=== PATIENT | female | born 1960 | race Caucasian/White ===

== ENCOUNTER 2018-12-24 08:40 | Inpatient (IN) ==
[2018-12-24 09:46] LABS: Basophils # 0.1 10*3/uL (0.0-0.2); Basophils % 0.5 % (0.0-0.8); Hematocrit 26.9 VOL% (35.7-47.0); Hemoglobin 9.1 GM/DL (12.0-16.0); Immature Granulocytes % 3.3 %; Immature Granulocytes Absolute 0.87 #; Lymphocytes # 1.9 10*3/uL (1.4-4.0); Lymphocytes % 7.1 % (21.3-54.2); Mean Corpuscular HGB Conc 33.8 GM/DL (32-36); Mean Corpuscular Volume 82.8 FL (87-102); Monocytes % 9.3 % (1.7-12.7); NRBC # 0.09 10*3/uL; Neutrophils % 79.8 % (38.7-73.9); Red Blood Count 3.25 MC/CUMM (3.8-5.5); Red Cell Distribution Width 17.5 % (9.3-17.3); White Blood Count 26.6 T/CUMM (4-12)
[2018-12-24 09:53] LABS: Platelet Count 1189 T/CUMM (130-400)
[2018-12-24 09:57] LABS: INR 0.9; PT Patient Result 10.3 SECS; Partial Thromboplastin Time 27.4 SECS (0-40)
[2018-12-24] MEDS ORDERED: SODIUM CHLORIDE 0.9% 1,000 ML IV STA ×2 (10:04→10:51)
[2018-12-24] MEDS ORDERED: PIPERACILLIN/TAZOBACTAM 3,375 MG in SODIUM CHLORIDE 0.9% 100 ML IV STA (10:04)
[2018-12-24 10:08] LABS: Albumin 1.8 G/DL (3.4-5.0); Bilirubin,Total 1.1 MG/DL (0.2-1.0); Calcium 8.4 MG/DL (8.5-10.1); Osmolality,Calculated 272.4 MOS/KG (273-304)
[2018-12-24 10:14] LABS: Band Neutrophils 4 % (0-10); Hypochromasia 1+; Lymphocytes 8 % (20-55); Platelet Estimate Increased; Segmented Neutrophils 84 % (50-85); Total Cells Counted 100
[2018-12-24 10:21] LABS: Apearance,Urine Slightly Hazy (Clear); Bacteria,Urine Many /HPF (Few); Bilirubin,Urine Negative (Negative); Blood, Urine Negative (Negative); Glucose,Urine (UA) Negative (Negative); Ketones,Urine 5 mg/dL (Negative); Mucus,Urine Many /LPF (Occasional); Nitrite,Urine Negative (Negative); Protein,Urine Negative; RBC,Urine 24 /HPF (0-4); Urine Color Yellow (Yellow); Urine Specific Gravity 1.047 (1.001-1.035); WBC,Urine 38 /HPF (0-6)
[2018-12-24 10:24] LABS: Barbiturates Screen,Urine Negative (Negative); Benzodiazepines Screen,Urine Negative (Negative); Cannabinoid Screen,Urine Negative (Negative); Opiate Screen,Urine Negative (Negative); Phencyclidine Screen,Urine Negative (Negative)
[2018-12-24] MEDS ORDERED: cefOXitin 2,000 MG in SYRINGE 1 EACH IV ONE (10:33)
[2018-12-24] MEDS ORDERED: ACETAMINOPHEN 325 MG TABLET PO PRN (10:35)
[2018-12-24] MEDS ORDERED: ALBUTEROL/IPRATROPIUM 3 ML NEB RESP TX PRN (10:35)
[2018-12-24] MEDS ORDERED: DEXTROSE 50% 25 GM/50 ML VIAL IV STA (10:50)
[2018-12-24] MEDS ORDERED: DEXTROSE 50% 25 GM/50 ML SYRINGE IV ONE (10:52)
[2018-12-24] MEDS ORDERED: LACTATED RINGERS 1,000 ML IV SCH (11:00)
[2018-12-24] MEDS ORDERED: DEXTROSE 10% 0 ML IV ONE (11:16)
[2018-12-24] MEDS ORDERED: DEXTROSE 50% 25 GM/50 ML VIAL IV ONE (11:18)
[2018-12-24] MEDS ORDERED: PHENYLEPHRINE DRIP 40 MG/250 ML PREMIX IV ONE (13:05)
[2018-12-24] MEDS ORDERED: NOREPINEPHRINE 8 MG in SODIUM CHLORIDE 0.9% 242 ML IV PRN (13:11)
[2018-12-24] MEDS ORDERED: propofoL 200 MG/20 ML VIAL IV ONE (13:20)
[2018-12-24] MEDS: PHENYLEPHRINE DRIP 40 MG/250 ML PREMIX IV PRN ×3 (13:20→21:38)
[2018-12-24] MEDS ORDERED: SEVOFLURANE 1 UNIT/15 MINUTE INH ONE (13:21)
[2018-12-24] MEDS ORDERED: DESFLURANE 1 UNIT/15 MINUTE INH ONE (13:21)
[2018-12-24] MEDS ORDERED: ROCURONIUM 100 MG/10 ML VIAL IV ONE (13:22)
[2018-12-24] MEDS ORDERED: SODIUM CHLORIDE 0.9% 2,000 ML IV ONE (13:22)
[2018-12-24] MEDS ORDERED: PHENYLEPHRINE 10 MG/1 ML VIAL IV ONE (13:22)
[2018-12-24] MEDS ORDERED: PHENYLEPHRINE 1 MG/10 ML SYRINGE IV ONE (13:22)
[2018-12-24] MEDS ORDERED: MIDAZOLAM 10 MG/2 ML VIAL ONE (13:22)
[2018-12-24] MEDS ORDERED: SUFentanil 50 MCG/ML AMP ONE (13:22)
[2018-12-24] MEDS ORDERED: SODIUM CHLORIDE 0.9% 1,000 ML IV ONE (13:22)
[2018-12-24] MEDS ORDERED: SUCCINYLCHOLINE 200 MG/10 ML VIAL ONE (13:22)
[2018-12-24] MEDS ORDERED: SODIUM CHLORIDE 0.9% 250 ML IV ONE (13:23)
[2018-12-24] MEDS ORDERED: SODIUM CHLORIDE 0.9% 100 ML IV ONE (13:23)
[2018-12-24 13:30] LABS: Apearance,Urine CLOUDY (Clear); Bacteria,Urine Few /HPF (Few); Bilirubin,Urine Negative (Negative); Blood, Urine Moderate mg/dL (Negative); Glucose,Urine (UA) 50 mg/dL (Negative); Ketones,Urine 5 mg/dL (Negative); Mucus,Urine Many /LPF (Occasional); Nitrite,Urine Negative (Negative); Protein,Urine Negative; RBC,Urine 21 /HPF (0-4); Urine Color Amber (Yellow); Urine Specific Gravity 1.044 (1.001-1.035); Urine Urobilinogen < 2.0 EU/DL (0.2-1.0); WBC,Urine 653 /HPF (0-6)
[2018-12-24 13:37] LABS: Allen Test Positive; Pt O2 Delivery Device Ventilator
[2018-12-24 13:39] LABS: ABG Base Excess -5.8 MMOL/L (-2.5-2.5); ABG HCO3 19.6 MMOL/L (20-26); ABG Oxygen Saturation 98.5 % (95-100); ABG PCO2 47.4 MM HG (35-48); ABG PH 7.255 (7.35-7.45); ABG TCO2 20.2 MMOL/L (23-27)
[2018-12-24] MEDS: HYDROmorphone 2 MG/1 ML VIAL IV PRN ×4 (16:10→22:41)
[2018-12-24] MEDS ORDERED: LACTATED RINGERS 1,000 ML IV ONE (18:41)
[2018-12-24] MEDS: ONDANSETRON 4 MG/2 ML VIAL IV PRN (18:55)
[2018-12-24] MEDS: LACTATED RINGERS 1,000 ML IV SCH (19:04)
[2018-12-24] MEDS: PIPERACILLIN/TAZOBACTAM 3,375 MG in SODIUM CHLORIDE 0.9% 100 ML IV SCH (21:14)
[2018-12-25] MEDS: PHENYLEPHRINE DRIP 40 MG/250 ML PREMIX IV PRN ×8 (00:31→21:12)
[2018-12-25] MEDS: LACTATED RINGERS 1,000 ML IV SCH ×4 (01:35→15:37)
[2018-12-25 03:48] LABS: ABG Base Excess -4.2 MMOL/L (-2.5-2.5); ABG HCO3 20.9 MMOL/L (20-26); ABG Oxygen Saturation 99.1 % (95-100); ABG PCO2 35.9 MM HG (35-48); ABG PH 7.367 (7.35-7.45); ABG TCO2 19.6 MMOL/L (23-27); Allen Test Positive; Pt O2 Delivery Device Ventilator
[2018-12-25] MEDS: HYDROmorphone 2 MG/1 ML VIAL IV PRN ×4 (04:15→20:30)
[2018-12-25 04:54] LABS: Basophils # 0.1 10*3/uL (0.0-0.2); Basophils % 0.3 % (0.0-0.8); Eosinophils % 0.1 % (0.00-10.9); Hematocrit 20.9 VOL% (35.7-47.0); Hemoglobin 6.7 GM/DL (12.0-16.0); Lymphocytes # 2.5 10*3/uL (1.4-4.0); Lymphocytes % 8.9 % (21.3-54.2); Mean Corpuscular HGB Conc 32.1 GM/DL (32-36); Mean Corpuscular Volume 87.8 FL (87-102); Mean Platelet Volume 9.2 FL (9.6-12.0); Monocytes % 11.3 % (1.7-12.7); NRBC # 0.33 10*3/uL; Neutrophils % 72.4 % (38.7-73.9); Red Blood Count 2.38 MC/CUMM (3.8-5.5); Red Cell Distribution Width 18.6 % (9.3-17.3); White Blood Count 28.5 T/CUMM (4-12)
[2018-12-25 05:02] LABS: Platelet Count 1015 T/CUMM (130-400)
[2018-12-25 05:13] LABS: PT Patient Result 11.2 SECS
[2018-12-25] MEDS ORDERED: SODIUM CHLORIDE 0.9% 1,000 ML IV PRN (05:15)
[2018-12-25 05:18] LABS: Albumin 1.4 G/DL (3.4-5.0); Bilirubin,Total 0.8 MG/DL (0.2-1.0); Calcium 7.3 MG/DL (8.5-10.1); Osmolality,Calculated 287.3 MOS/KG (273-304); Total Protein 4.4 G/DL (6.4-8.3)
[2018-12-25] MEDS ORDERED: DEXTROSE 10% 250 ML IV ONE (05:49)
[2018-12-25 05:52] LABS: Band Neutrophils 9 % (0-10); Lymphocytes 5 % (20-55); Metamyelocytes 1 %; Nucleated Red Blood Cells 2 (0-5); Promyelocytes 2 %; Segmented Neutrophils 75 % (50-85); Total Cells Counted 100
[2018-12-25 05:53] LABS: Hypochromasia 1+; Target Cells Few
[2018-12-25 05:54] LABS: Anisocytosis 1+; Microcytosis 1+
[2018-12-25] MEDS ORDERED: DEXTROSE 10% 250 ML BAG IV PRN (06:19)
[2018-12-25] MEDS: PANTOPRAZOLE 40 MG VIAL IV SCH (09:04)
[2018-12-25] MEDS: metroNIDAZOLE INJ 500 MG in PREMIX 1 EACH IV SCH ×3 (09:04→21:11)
[2018-12-25] MEDS: PIPERACILLIN/TAZOBACTAM 3,375 MG in SODIUM CHLORIDE 0.9% 100 ML IV SCH ×2 (12:33→21:12)
[2018-12-25] MEDS: ONDANSETRON 4 MG/2 ML VIAL IV PRN (15:17)
[2018-12-25] MEDS: DEXT 5% NACL 0.45% KCL 20 MEQ 20 MEQ/1,000 ML BAG IV SCH ×2 (15:43→22:30)
[2018-12-25 20:36] LABS: Hematocrit 36.2 VOL% (35.7-47.0)
[2018-12-25 20:51] LABS: Hemoglobin 11.8 GM/DL (12.0-16.0)
[2018-12-26] MEDS: PHENYLEPHRINE DRIP 40 MG/250 ML PREMIX IV PRN ×7 (00:18→22:30)
[2018-12-26] MEDS: metroNIDAZOLE INJ 500 MG in PREMIX 1 EACH IV SCH ×4 (02:30→20:30)
[2018-12-26 02:45] LABS: ABG Base Excess -5.4 MMOL/L (-2.5-2.5); ABG PCO2 39.6 MM HG (35-48); ABG PH 7.319 (7.35-7.45); ABG TCO2 18.5 MMOL/L (23-27); Allen Test Positive; Pt O2 Delivery Device Ventilator
[2018-12-26] MEDS: DEXT 5% NACL 0.45% KCL 20 MEQ 20 MEQ/1,000 ML BAG IV SCH ×4 (05:15→20:42)
[2018-12-26] MEDS: HYDROmorphone 2 MG/1 ML VIAL IV PRN ×4 (05:23→23:36)
[2018-12-26 05:47] LABS: Basophils # 0.2 10*3/uL (0.0-0.2); Basophils % 0.8 % (0.0-0.8); Eosinophils # 0.1 10*3/uL (0.0-0.87); Eosinophils % 0.5 % (0.00-10.9); Hematocrit 30.4 VOL% (35.7-47.0); Hemoglobin 10.1 GM/DL (12.0-16.0); Immature Granulocytes % 18.3 %; Immature Granulocytes Absolute 4.14 #; Lymphocytes # 2.4 10*3/uL (1.4-4.0); Lymphocytes % 10.6 % (21.3-54.2); Mean Corpuscular HGB Conc 33.2 GM/DL (32-36); Mean Corpuscular Volume 88.4 FL (87-102); Mean Platelet Volume 9.4 FL (9.6-12.0); Monocytes % 10.7 % (1.7-12.7); NRBC # 0.04 10*3/uL; Neutrophils % 59.1 % (38.7-73.9); Platelet Count 688 T/CUMM (130-400); Red Blood Count 3.44 MC/CUMM (3.8-5.5); Red Cell Distribution Width 17.4 % (9.3-17.3); White Blood Count 22.6 T/CUMM (4-12)
[2018-12-26 06:02] LABS: PT Patient Result 11.1 SECS
[2018-12-26 06:20] LABS: Albumin 1.4 G/DL (3.4-5.0); Bilirubin,Total 0.7 MG/DL (0.2-1.0); Calcium 7.9 MG/DL (8.5-10.1); Total Protein 4.8 G/DL (6.4-8.3)
[2018-12-26 06:28] LABS: Anisocytosis 1+; Band Neutrophils 5 % (0-10); Eosinophils 1 % (0-10); Hypochromasia Slight; Lymphocytes 4 % (20-55); Metamyelocytes 7 %; Microcytosis 1+; Myelocytes 1 %; Segmented Neutrophils 73 % (50-85); Total Cells Counted 100
[2018-12-26 06:29] LABS: Polychromasia Slight; Target Cells 1+
[2018-12-26 06:30] LABS: Platelet Estimate Increased
[2018-12-26] MEDS: PANTOPRAZOLE 40 MG VIAL IV SCH (08:22)
[2018-12-26] MEDS: PIPERACILLIN/TAZOBACTAM 3,375 MG in SODIUM CHLORIDE 0.9% 100 ML IV SCH ×2 (10:13→22:30)
[2018-12-26] MEDS ORDERED: fentaNYL 100 MCG/2 ML VIAL ONE (14:09)
[2018-12-26] MEDS ORDERED: SEVOFLURANE 1 UNIT/15 MINUTE INH ONE (14:09)
[2018-12-26] MEDS ORDERED: ALBUMIN 5% 12.5 GM/250 ML VIAL IV ONE (14:09)
[2018-12-26] MEDS ORDERED: LACTATED RINGERS 1,000 ML IV ONE (14:10)
[2018-12-26] MEDS ORDERED: MIDAZOLAM 2 MG/2 ML VIAL ONE (14:10)
[2018-12-26] MEDS ORDERED: ROCURONIUM 100 MG/10 ML VIAL IV ONE (14:10)
[2018-12-26] MEDS ORDERED: ePHEDrine 50 MG/ML AMP ONE (14:10)
[2018-12-26] MEDS ORDERED: GLUCAGON 1 MG VIAL IM PRN (14:35)
[2018-12-26] MEDS ORDERED: DEXTROSE 50% 25 GM/50 ML VIAL IV PRN (14:35)
[2018-12-26] MEDS ORDERED: INSULIN REGULAR 100 UNIT/ML SUBCUT SCH (18:00)
[2018-12-27] MEDS: PHENYLEPHRINE DRIP 40 MG/250 ML PREMIX IV PRN ×3 (02:02→09:11)
[2018-12-27] MEDS: metroNIDAZOLE INJ 500 MG in PREMIX 1 EACH IV SCH ×4 (02:40→20:58)
[2018-12-27] MEDS: DEXT 5% NACL 0.45% KCL 20 MEQ 20 MEQ/1,000 ML BAG IV SCH (03:23)
[2018-12-27 04:04] LABS: ABG Base Excess -7.1 MMOL/L (-2.5-2.5); ABG HCO3 18.7 MMOL/L (20-26); ABG Oxygen Saturation 98.9 % (95-100); ABG PCO2 32.2 MM HG (35-48); ABG PH 7.347 (7.35-7.45); ABG TCO2 15.7 MMOL/L (23-27); Pt O2 Delivery Device Ventilator
[2018-12-27 05:59] LABS: Basophils % 0.1 % (0.0-0.8); Eosinophils # 0.1 10*3/uL (0.0-0.87); Eosinophils % 0.2 % (0.00-10.9); Hematocrit 36.6 VOL% (35.7-47.0); Hemoglobin 11.5 GM/DL (12.0-16.0); Immature Granulocytes % 13.4 %; Immature Granulocytes Absolute 5.12 #; Lymphocytes # 2.9 10*3/uL (1.4-4.0); Lymphocytes % 7.5 % (21.3-54.2); Mean Corpuscular HGB Conc 31.4 GM/DL (32-36); Mean Corpuscular Volume 91.3 FL (87-102); Monocytes % 7.5 % (1.7-12.7); NRBC # 0.06 10*3/uL; Neutrophils % 71.3 % (38.7-73.9); Platelet Count 633 T/CUMM (130-400); Red Blood Count 4.01 MC/CUMM (3.8-5.5); Red Cell Distribution Width 18.6 % (9.3-17.3); White Blood Count 38.2 T/CUMM (4-12)
[2018-12-27 06:30] LABS: Albumin 1.1 G/DL (3.4-5.0); Bilirubin,Total 0.9 MG/DL (0.2-1.0); Calcium 7.3 MG/DL (8.5-10.1); Osmolality,Calculated 280.1 MOS/KG (273-304); Total Protein 4.1 G/DL (6.4-8.3)
[2018-12-27 06:32] LABS: Band Neutrophils 13 % (0-10); Lymphocytes 7 % (20-55); Metamyelocytes 2 %; Myelocytes 3 %; Segmented Neutrophils 70 % (50-85)
[2018-12-27 06:34] LABS: Hypochromasia Slight; Platelet Estimate Increased; Polychromasia Few
[2018-12-27 06:35] LABS: Total Cells Counted 100
[2018-12-27] MEDS ORDERED: LACTATED RINGERS 1,000 ML IV ONE (06:43)
[2018-12-27 07:10] LABS: Prealbumin < 3.0 MG/DL (20-40)
[2018-12-27] MEDS: HYDROmorphone 2 MG/1 ML VIAL IV PRN ×4 (07:40→20:57)
[2018-12-27] MEDS ORDERED: MAGNESIUM SULF RIDER 2 GM in PREMIX 1 EACH IV ONE (09:01)
[2018-12-27] MEDS: DEXTROSE 5% LACTATED RINGERS 1,000 ML IV SCH ×2 (09:39→17:21)
[2018-12-27] MEDS: PANTOPRAZOLE 40 MG VIAL IV SCH (09:42)
[2018-12-27] MEDS: PIPERACILLIN/TAZOBACTAM 3,375 MG in SODIUM CHLORIDE 0.9% 100 ML IV SCH ×2 (11:10→21:00)
[2018-12-27] MEDS ORDERED: DEXTROSE 10% 1,000 ML IV PRN (17:00)
[2018-12-27] MEDS ORDERED: LYTES IV SCH (17:00)
[2018-12-27] MEDS ORDERED: DEXT IV SCH (17:00)
[2018-12-27] MEDS ORDERED: AMINO ACIDS IV SCH (17:00)
[2018-12-27] MEDS ORDERED: SODIUM PHOSPHATE IV SCH (17:00)
[2018-12-27] MEDS: INSULIN REGULAR 100 UNIT/ML SUBCUT SCH ×2 (17:20→19:08)
[2018-12-28] MEDS: INSULIN REGULAR 100 UNIT/ML SUBCUT SCH ×4 (00:21→17:40)
[2018-12-28] MEDS: DEXTROSE 5% LACTATED RINGERS 1,000 ML IV SCH ×3 (01:21→21:34)
[2018-12-28] MEDS: metroNIDAZOLE INJ 500 MG in PREMIX 1 EACH IV SCH ×4 (03:15→21:35)
[2018-12-28 04:30] LABS: ABG Base Excess -4.3 MMOL/L (-2.5-2.5); ABG HCO3 20.9 MMOL/L (20-26); ABG Oxygen Saturation 98.6 % (95-100); ABG PCO2 35.1 MM HG (35-48); ABG PH 7.372 (7.35-7.45); ABG TCO2 18.8 MMOL/L (23-27); Allen Test Positive; Pt O2 Delivery Device Ventilator
[2018-12-28 05:17] LABS: Albumin 0.9 G/DL (3.4-5.0); Bilirubin,Total 0.6 MG/DL (0.2-1.0); Calcium 7.2 MG/DL (8.5-10.1); Osmolality,Calculated 284.8 MOS/KG (273-304); Total Protein 3.4 G/DL (6.4-8.3)
[2018-12-28 06:35] LABS: Basophils # 0.1 10*3/uL (0.0-0.2); Basophils % 0.4 % (0.0-0.8); Eosinophils # 0.2 10*3/uL (0.0-0.87); Eosinophils % 0.9 % (0.00-10.9); Hematocrit 26.9 VOL% (35.7-47.0); Hemoglobin 8.8 GM/DL (12.0-16.0); Immature Granulocytes % 13.4 %; Lymphocytes # 2.2 10*3/uL (1.4-4.0); Lymphocytes % 7.8 % (21.3-54.2); Mean Corpuscular HGB Conc 32.7 GM/DL (32-36); Mean Corpuscular Volume 90.9 FL (87-102); Mean Platelet Volume 9.4 FL (9.6-12.0); Monocytes % 8.2 % (1.7-12.7); Neutrophils % 69.3 % (38.7-73.9); Platelet Count 490 T/CUMM (130-400); Red Blood Count 2.96 MC/CUMM (3.8-5.5); Red Cell Distribution Width 18.6 % (9.3-17.3); White Blood Count 27.7 T/CUMM (4-12)
[2018-12-28 06:41] LABS: Eosinophils 4 % (0-10); Lymphocytes 14 % (20-55); Platelet Estimate Increased; Polychromasia Few; Segmented Neutrophils 75 % (50-85); Total Cells Counted 100
[2018-12-28] MEDS ORDERED: SEVOFLURANE 1 UNIT/15 MINUTE INH ONE (08:58)
[2018-12-28] MEDS ORDERED: propofoL 200 MG/20 ML VIAL IV ONE (08:58)
[2018-12-28] MEDS ORDERED: PHENYLEPHRINE 1 MG/10 ML SYRINGE IV ONE (08:59)
[2018-12-28] MEDS ORDERED: ONDANSETRON 4 MG/2 ML VIAL ONE (08:59)
[2018-12-28] MEDS ORDERED: LACTATED RINGERS 1,000 ML IV ONE (08:59)
[2018-12-28] MEDS ORDERED: fentaNYL 100 MCG/2 ML VIAL ONE (08:59)
[2018-12-28] MEDS ORDERED: MIDAZOLAM 2 MG/2 ML VIAL ONE (08:59)
[2018-12-28] MEDS ORDERED: ROCURONIUM 100 MG/10 ML VIAL IV ONE (08:59)
[2018-12-28] MEDS: PANTOPRAZOLE 40 MG VIAL IV SCH (09:31)
[2018-12-28] MEDS: PIPERACILLIN/TAZOBACTAM 3,375 MG in SODIUM CHLORIDE 0.9% 100 ML IV SCH ×2 (09:32→21:35)
[2018-12-28] MEDS ORDERED: AMINO ACIDS IV SCH (17:00)
[2018-12-28] MEDS ORDERED: LYTES IV SCH (17:00)
[2018-12-28] MEDS ORDERED: SODIUM PHOSPHATE IV SCH (17:00)
[2018-12-28] MEDS ORDERED: DEXT IV SCH (17:00)
[2018-12-28] MEDS: HYDROmorphone 2 MG/1 ML VIAL IV PRN (17:38)
[2018-12-29] MEDS: HYDROmorphone 2 MG/1 ML VIAL IV PRN ×3 (01:18→20:44)
[2018-12-29] MEDS: INSULIN REGULAR 100 UNIT/ML SUBCUT SCH ×4 (01:46→18:23)
[2018-12-29 03:04] LABS: ABG Base Excess -1.3 MMOL/L (-2.5-2.5); ABG HCO3 23.3 MMOL/L (20-26); ABG Oxygen Saturation 98.5 % (95-100); ABG PCO2 37.7 MM HG (35-48); ABG PH 7.398 (7.35-7.45); ABG TCO2 21.3 MMOL/L (23-27); Allen Test Positive; Pt O2 Delivery Device Ventilator
[2018-12-29 03:47] LABS: Basophils # 0.1 10*3/uL (0.0-0.2); Basophils % 0.5 % (0.0-0.8); Eosinophils # 0.3 10*3/uL (0.0-0.87); Eosinophils % 1.3 % (0.00-10.9); Hematocrit 28.3 VOL% (35.7-47.0); Hemoglobin 9.2 GM/DL (12.0-16.0); Immature Granulocytes Absolute 4.01 #; Lymphocytes % 8.1 % (21.3-54.2); Mean Corpuscular HGB Conc 32.5 GM/DL (32-36); Mean Corpuscular Volume 90.1 FL (87-102); Mean Platelet Volume 9.7 FL (9.6-12.0); Monocytes % 7.5 % (1.7-12.7); NRBC # 0.02 10*3/uL; Neutrophils % 66.6 % (38.7-73.9); Platelet Count 424 T/CUMM (130-400); Red Blood Count 3.14 MC/CUMM (3.8-5.5); Red Cell Distribution Width 18.6 % (9.3-17.3); White Blood Count 25.1 T/CUMM (4-12)
[2018-12-29] MEDS: metroNIDAZOLE INJ 500 MG in PREMIX 1 EACH IV SCH ×4 (04:00→20:43)
[2018-12-29 04:15] LABS: Calcium 7.1 MG/DL (8.5-10.1); Osmolality,Calculated 283.8 MOS/KG (273-304)
[2018-12-29 04:30] LABS: Eosinophils 3 % (0-10); Lymphocytes 3 % (20-55); Nucleated Red Blood Cells 1 (0-5); Platelet Estimate Normal; Polychromasia Few; Segmented Neutrophils 84 % (50-85); Target Cells Few; Total Cells Counted 100
[2018-12-29] MEDS: DEXTROSE 5% LACTATED RINGERS 1,000 ML IV SCH ×4 (05:50→23:09)
[2018-12-29] MEDS ORDERED: MAGNESIUM SULF RIDER 4 GM in PREMIX 1 EACH IV ONE (08:33)
[2018-12-29] MEDS: PIPERACILLIN/TAZOBACTAM 3,375 MG in SODIUM CHLORIDE 0.9% 100 ML IV SCH ×2 (09:18→23:06)
[2018-12-29] MEDS: PANTOPRAZOLE 40 MG VIAL IV SCH (09:19)
[2018-12-29] MEDS: fentaNYL INJ 1,250 MCG in SODIUM CHLORIDE 0.9% 225 ML IV PRN (12:51)
[2018-12-29] MEDS: ELECTROLYTE CONCENTRATE 40 ML, TRACE ELEMENTS (5) 1 ML, MULTIVITAMIN INJ 10 ML, POTASSI... IV SCH (17:46)
[2018-12-30] MEDS: fentaNYL INJ 1,250 MCG in SODIUM CHLORIDE 0.9% 225 ML IV PRN ×2 (01:00→17:17)
[2018-12-30] MEDS: HYDROmorphone 2 MG/1 ML VIAL IV PRN ×8 (01:36→23:55)
[2018-12-30] MEDS: INSULIN REGULAR 100 UNIT/ML SUBCUT SCH ×4 (01:42→18:27)
[2018-12-30] MEDS: metroNIDAZOLE INJ 500 MG in PREMIX 1 EACH IV SCH ×4 (03:47→21:28)
[2018-12-30 03:50] LABS: ABG Base Excess 1.8 MMOL/L (-2.5-2.5); ABG Oxygen Saturation 99.3 % (95-100); ABG PCO2 41.5 MM HG (35-48); ABG PH 7.413 (7.35-7.45); ABG TCO2 24.3 MMOL/L (23-27); Allen Test Positive; Pt O2 Delivery Device Ventilator
[2018-12-30 04:48] LABS: Basophils # 0.1 10*3/uL (0.0-0.2); Basophils % 0.5 % (0.0-0.8); Eosinophils # 0.4 10*3/uL (0.0-0.87); Eosinophils % 1.8 % (0.00-10.9); Hematocrit 28.6 VOL% (35.7-47.0); Hemoglobin 8.8 GM/DL (12.0-16.0); Immature Granulocytes Absolute 2.88 #; Lymphocytes # 2.2 10*3/uL (1.4-4.0); Mean Corpuscular HGB Conc 30.8 GM/DL (32-36); Mean Corpuscular Volume 92.9 FL (87-102); Mean Platelet Volume 9.4 FL (9.6-12.0); Monocytes % 10.5 % (1.7-12.7); Neutrophils % 64.2 % (38.7-73.9); Platelet Count 440 T/CUMM (130-400); Red Blood Count 3.08 MC/CUMM (3.8-5.5); Red Cell Distribution Width 18.5 % (9.3-17.3); White Blood Count 22.1 T/CUMM (4-12)
[2018-12-30 05:06] LABS: Calcium 7.1 MG/DL (8.5-10.1); Osmolality,Calculated 285.7 MOS/KG (273-304)
[2018-12-30 06:26] LABS: Band Neutrophils 5 % (0-10); Lymphocytes 12 % (20-55); Platelet Estimate Normal; Segmented Neutrophils 75 % (50-85); Total Cells Counted 100
[2018-12-30 06:27] LABS: Anisocytosis 2+
[2018-12-30] MEDS ORDERED: MIDAZOLAM 2 MG/2 ML VIAL ONE (08:33)
[2018-12-30] MEDS ORDERED: SEVOFLURANE 1 UNIT/15 MINUTE INH ONE (08:33)
[2018-12-30] MEDS ORDERED: PHENYLEPHRINE 1 MG/10 ML SYRINGE IV ONE (08:34)
[2018-12-30] MEDS ORDERED: SODIUM CHLORIDE 0.9% 1,000 ML IV ONE (08:34)
[2018-12-30] MEDS ORDERED: ROCURONIUM 100 MG/10 ML VIAL IV ONE (08:34)
[2018-12-30] MEDS: PIPERACILLIN/TAZOBACTAM 3,375 MG in SODIUM CHLORIDE 0.9% 100 ML IV SCH ×2 (09:44→23:20)
[2018-12-30] MEDS: PANTOPRAZOLE 40 MG VIAL IV SCH (09:45)
[2018-12-30] MEDS: ENOXAPARIN 40 MG/0.4 ML SYRINGE SUBCUT SCH (10:01)
[2018-12-30] MEDS: DEXTROSE 5% LACTATED RINGERS 1,000 ML IV SCH (12:43)
[2018-12-30] MEDS: ELECTROLYTE CONCENTRATE 40 ML, TRACE ELEMENTS (5) 1 ML, MULTIVITAMIN INJ 10 ML, POTASSI... IV SCH (17:22)
[2018-12-31] MEDS: fentaNYL INJ 1,250 MCG in SODIUM CHLORIDE 0.9% 225 ML IV PRN (00:20)
[2018-12-31] MEDS: fentaNYL INJ 2,500 MCG in SODIUM CHLORIDE 0.9% 450 ML IV PRN ×2 (00:20→13:36)
[2018-12-31] MEDS: INSULIN REGULAR 100 UNIT/ML SUBCUT SCH ×4 (01:44→17:22)
[2018-12-31 03:57] LABS: ABG Base Excess 3.7 MMOL/L (-2.5-2.5); ABG HCO3 27.7 MMOL/L (20-26); ABG Oxygen Saturation 98.1 % (95-100); ABG PCO2 53.4 MM HG (35-48); ABG PH 7.358 (7.35-7.45); ABG TCO2 27.9 MMOL/L (23-27); Allen Test Positive; Pt O2 Delivery Device Ventilator
[2018-12-31] MEDS: metroNIDAZOLE INJ 500 MG in PREMIX 1 EACH IV SCH ×4 (04:10→21:01)
[2018-12-31 04:31] LABS: Basophils # 0.2 10*3/uL (0.0-0.2); Basophils % 0.5 % (0.0-0.8); Eosinophils # 0.5 10*3/uL (0.0-0.87); Eosinophils % 1.5 % (0.00-10.9); Hemoglobin 8.4 GM/DL (12.0-16.0); Immature Granulocytes % 9.1 %; Immature Granulocytes Absolute 2.73 #; Lymphocytes # 2.9 10*3/uL (1.4-4.0); Lymphocytes % 9.6 % (21.3-54.2); Mean Corpuscular HGB Conc 31.1 GM/DL (32-36); Mean Corpuscular Volume 91.8 FL (87-102); Mean Platelet Volume 9.5 FL (9.6-12.0); Monocytes % 10.2 % (1.7-12.7); Neutrophils % 69.1 % (38.7-73.9); Platelet Count 401 T/CUMM (130-400); Red Blood Count 2.94 MC/CUMM (3.8-5.5); Red Cell Distribution Width 18.2 % (9.3-17.3); White Blood Count 30.1 T/CUMM (4-12)
[2018-12-31 04:53] LABS: Band Neutrophils 1 % (0-10); Eosinophils 1 % (0-10); Lymphocytes 12 % (20-55); Segmented Neutrophils 83 % (50-85); Total Cells Counted 100
[2018-12-31 04:54] LABS: Hypochromasia 1+; Platelet Estimate Adequate
[2018-12-31 05:03] LABS: Prealbumin 4.6 MG/DL (20-40)
[2018-12-31 05:04] LABS: Calcium 7.1 MG/DL (8.5-10.1); Osmolality,Calculated 284.8 MOS/KG (273-304)
[2018-12-31] MEDS: PIPERACILLIN/TAZOBACTAM 3,375 MG in SODIUM CHLORIDE 0.9% 100 ML IV SCH ×2 (09:40→21:02)
[2018-12-31] MEDS: ENOXAPARIN 40 MG/0.4 ML SYRINGE SUBCUT SCH (09:41)
[2018-12-31] MEDS: PANTOPRAZOLE 40 MG VIAL IV SCH (09:41)
[2018-12-31] MEDS: HYDROmorphone 2 MG/1 ML VIAL IV PRN ×3 (09:42→15:49)
[2018-12-31] MEDS ORDERED: CALCIUM GLUCONATE 1,000 MG in SODIUM CHLORIDE 0.9% 100 ML IV ONE (11:00)
[2018-12-31] MEDS: DEXTROSE 5% LACTATED RINGERS 1,000 ML IV SCH ×2 (11:10→11:34)
[2018-12-31] MEDS ORDERED: POTASSIUM PHOSPHATE 40 MMOL in SODIUM CHLORIDE 0.9% 250 ML IV ONE (12:00)
[2018-12-31] MEDS: VANCOMYCIN INJ 1,250 MG in SODIUM CHLORIDE 0.9% 250 ML IV SCH ×2 (12:37→23:00)
[2018-12-31] MEDS ORDERED: MAGNESIUM SULF RIDER 2 GM in PREMIX 1 EACH IV ONE (13:00)
[2018-12-31] MEDS: ELECTROLYTE CONCENTRATE 40 ML, TRACE ELEMENTS (5) 1 ML, MULTIVITAMIN INJ 10 ML, POTASSI... IV SCH (17:24)
[2019-01-01] MEDS: INSULIN REGULAR 100 UNIT/ML SUBCUT SCH ×4 (00:58→18:24)
[2019-01-01] MEDS: metroNIDAZOLE INJ 500 MG in PREMIX 1 EACH IV SCH ×3 (02:17→15:30)
[2019-01-01] MEDS: fentaNYL INJ 2,500 MCG in SODIUM CHLORIDE 0.9% 450 ML IV PRN (02:40)
[2019-01-01 04:04] LABS: Basophils # 0.1 10*3/uL (0.0-0.2); Basophils % 0.5 % (0.0-0.8); Eosinophils # 0.4 10*3/uL (0.0-0.87); Hemoglobin 7.5 GM/DL (12.0-16.0); Immature Granulocytes % 8.7 %; Immature Granulocytes Absolute 1.92 #; Lymphocytes # 2.5 10*3/uL (1.4-4.0); Lymphocytes % 11.4 % (21.3-54.2); Mean Corpuscular Volume 94.7 FL (87-102); Monocytes % 10.2 % (1.7-12.7); Neutrophils % 67.2 % (38.7-73.9); Platelet Count 421 T/CUMM (130-400); Red Blood Count 2.64 MC/CUMM (3.8-5.5); Red Cell Distribution Width 18.6 % (9.3-17.3); White Blood Count 22.1 T/CUMM (4-12)
[2019-01-01 04:28] LABS: Alanine Aminotransferase < 9 U/L (13-56); Albumin 0.7 G/DL (3.4-5.0); Alkaline Phosphatase 108 U/L (45-117); Aspartate Amino Transferase 21 U/L (0-37); Blood Urea Nitrogen 12 MG/DL (7-18); Estimated Glom Filtration Rate 172 ML/MIN; Glucose 102 MG/DL (74-106); Osmolality,Calculated 291.4 MOS/KG (273-304); Total Protein 3.7 G/DL (6.4-8.3)
[2019-01-01 04:33] LABS: ABG Base Excess 6.5 MMOL/L (-2.5-2.5); ABG HCO3 30.3 MMOL/L (20-26); ABG Oxygen Saturation 98.4 % (95-100); ABG PCO2 48.8 MM HG (35-48); ABG PH 7.422 (7.35-7.45); ABG TCO2 29.6 MMOL/L (23-27)
[2019-01-01 05:17] LABS: Band Neutrophils 10 % (0-10); Eosinophils 1 % (0-10); Lymphocytes 6 % (20-55); Segmented Neutrophils 73 % (50-85); Total Cells Counted 100
[2019-01-01 05:18] LABS: Hypochromasia 2+; Platelet Estimate Increased
[2019-01-01] MEDS: PANTOPRAZOLE 40 MG VIAL IV SCH (09:16)
[2019-01-01] MEDS: DEXTROSE 5% LACTATED RINGERS 1,000 ML IV SCH ×2 (10:26→10:27)
[2019-01-01] MEDS ORDERED: SODIUM CHLORIDE 0.9% 1,000 ML IV ONE (12:18)
[2019-01-01] MEDS ORDERED: MIDAZOLAM 2 MG/2 ML VIAL ONE (12:18)
[2019-01-01] MEDS ORDERED: ROCURONIUM 100 MG/10 ML VIAL IV ONE (12:18)
[2019-01-01] MEDS ORDERED: SEVOFLURANE 1 UNIT/15 MINUTE INH ONE (12:18)
[2019-01-01] MEDS: VANCOMYCIN INJ 1,250 MG in SODIUM CHLORIDE 0.9% 250 ML IV SCH (12:50)
[2019-01-01] MEDS: fentaNYL INJ 2,500 MCG in DEXTROSE 5% 450 ML IV PRN (14:23)
[2019-01-01] MEDS: ELECTROLYTE CONCENTRATE 40 ML, TRACE ELEMENTS (5) 1 ML, MULTIVITAMIN INJ 10 ML, POTASSI... IV SCH (18:14)
[2019-01-01 22:39] LABS: Hematocrit 34.1 VOL% (35.7-47.0)
[2019-01-01] MEDS ORDERED: ACETAMINOPHEN 650 MG SUPP RECTAL PRN (22:52)
[2019-01-02] MEDS: INSULIN REGULAR 100 UNIT/ML SUBCUT SCH ×5 (00:17→23:37)
[2019-01-02] MEDS: HYDROmorphone 2 MG/1 ML VIAL IV PRN (00:28)
[2019-01-02 03:47] LABS: Basophils # 0.2 10*3/uL (0.0-0.2); Basophils % 0.8 % (0.0-0.8); Eosinophils # 0.2 10*3/uL (0.0-0.87); Eosinophils % 1.1 % (0.00-10.9); Hematocrit 31.2 VOL% (35.7-47.0); Hemoglobin 10.3 GM/DL (12.0-16.0); Immature Granulocytes % 6.4 %; Immature Granulocytes Absolute 1.32 #; Lymphocytes # 2.1 10*3/uL (1.4-4.0); Lymphocytes % 9.9 % (21.3-54.2); Mean Corpuscular Volume 92.3 FL (87-102); Mean Platelet Volume 9.9 FL (9.6-12.0); Monocytes % 10.7 % (1.7-12.7); Neutrophils % 71.1 % (38.7-73.9); Platelet Count 428 T/CUMM (130-400); Red Blood Count 3.38 MC/CUMM (3.8-5.5); Red Cell Distribution Width 17.1 % (9.3-17.3); White Blood Count 20.7 T/CUMM (4-12)
[2019-01-02 03:51] LABS: ABG Base Excess 5.8 MMOL/L (-2.5-2.5); ABG HCO3 29.7 MMOL/L (20-26); ABG Oxygen Saturation 97.6 % (95-100); ABG PCO2 42.6 MM HG (35-48); ABG PO2 93.8 MM HG (80-95); ABG TCO2 27.1 MMOL/L (23-27); Pt O2 Delivery Device Ventilator
[2019-01-02 04:14] LABS: Alanine Aminotransferase < 9 U/L (13-56); Albumin 0.8 G/DL (3.4-5.0); Alkaline Phosphatase 138 U/L (45-117); Aspartate Amino Transferase 20 U/L (0-37); Band Neutrophils 1 % (0-10); Blood Urea Nitrogen 13 MG/DL (7-18); Eosinophils 2 % (0-10); Estimated Glom Filtration Rate 172 ML/MIN; Glucose 112 MG/DL (74-106); Hypochromasia 1+; Lymphocytes 10 % (20-55); Osmolality,Calculated 288.7 MOS/KG (273-304); Platelet Estimate Adequate; Segmented Neutrophils 78 % (50-85); Total Cells Counted 100
[2019-01-02] MEDS: PANTOPRAZOLE 40 MG VIAL IV SCH (09:25)
[2019-01-02] MEDS ORDERED: FUROSEMIDE 40 MG/4 ML VIAL IV ONE ×2 (09:26→15:00)
[2019-01-02] MEDS: DEXTROSE 5% LACTATED RINGERS 1,000 ML IV SCH (09:29)
[2019-01-02] MEDS: fentaNYL INJ 2,500 MCG in DEXTROSE 5% 450 ML IV PRN ×2 (10:03→21:04)
[2019-01-02 11:58] LABS: ABG Base Excess 7.1 MMOL/L (-2.5-2.5); ABG HCO3 30.8 MMOL/L (20-26); ABG PCO2 42.4 MM HG (35-48); ABG PH 7.477 (7.35-7.45); ABG PO2 74.2 MM HG (80-95); ABG TCO2 27.3 MMOL/L (23-27); Pt O2 Delivery Device Ventilator
[2019-01-02] MEDS: VANCOMYCIN INJ 1,250 MG in SODIUM CHLORIDE 0.9% 250 ML IV SCH ×3 (12:47→23:36)
[2019-01-02] MEDS ORDERED: ALBUMIN 25% 25 GM in PREMIX 1 EACH IV ONE (14:00)
[2019-01-02] MEDS: ELECTROLYTE CONCENTRATE 40 ML, TRACE ELEMENTS (5) 1 ML, MULTIVITAMIN INJ 10 ML, POTASSI... IV SCH (17:28)
[2019-01-03 03:03] LABS: ABG Base Excess 8.5 MMOL/L (-2.5-2.5); ABG HCO3 32.2 MMOL/L (20-26); ABG Oxygen Saturation 96.9 % (95-100); ABG PCO2 48.7 MM HG (35-48); ABG PH 7.449 (7.35-7.45); ABG PO2 83.7 MM HG (80-95); ABG TCO2 30.4 MMOL/L (23-27); Allen Test Positive; Pt O2 Delivery Device Ventilator
[2019-01-03 04:36] LABS: Prealbumin 6.4 MG/DL (20-40)
[2019-01-03] MEDS: INSULIN REGULAR 100 UNIT/ML SUBCUT SCH ×4 (05:34→23:24)
[2019-01-03] MEDS: fentaNYL INJ 2,500 MCG in DEXTROSE 5% 450 ML IV PRN ×2 (07:14→17:45)
[2019-01-03] MEDS ORDERED: FUROSEMIDE 40 MG/4 ML VIAL IV ONE (08:00)
[2019-01-03] MEDS: SODIUM HYPOCHLORITE 0.25% IRRIG 473 ML BOTTLE TOP SCH ×2 (09:45→09:46)
[2019-01-03] MEDS: PANTOPRAZOLE 40 MG VIAL IV SCH (10:40)
[2019-01-03] MEDS ORDERED: MAGNESIUM SULF RIDER 2 GM in PREMIX 1 EACH IV ONE (11:49)
[2019-01-03] MEDS: VANCOMYCIN INJ 1,250 MG in SODIUM CHLORIDE 0.9% 250 ML IV SCH ×2 (11:51→23:16)
[2019-01-03] MEDS: LEVOFLOXACIN INJ 750 MG in PREMIX 1 EACH IV SCH (12:07)
[2019-01-03] MEDS: PHENYLEPHRINE DRIP 40 MG/250 ML PREMIX IV PRN (13:24)
[2019-01-03] MEDS: HYDROmorphone 2 MG/1 ML VIAL IV PRN (16:41)
[2019-01-03] MEDS: ELECTROLYTE CONCENTRATE 40 ML, TRACE ELEMENTS (5) 1 ML, MULTIVITAMIN INJ 10 ML, POTASSI... IV SCH (17:54)
[2019-01-04] MEDS: PHENYLEPHRINE DRIP 40 MG/250 ML PREMIX IV PRN ×3 (01:40→19:10)
[2019-01-04] MEDS: fentaNYL INJ 2,500 MCG in DEXTROSE 5% 450 ML IV PRN ×2 (03:01→14:36)
[2019-01-04 04:06] LABS: ABG Base Excess 6.2 MMOL/L (-2.5-2.5); ABG HCO3 32.7 MMOL/L (20-26); ABG Oxygen Saturation 97.5 % (95-100); ABG PCO2 56.5 MM HG (35-48); ABG PO2 107.6 MM HG (80-95); ABG TCO2 34.4 MMOL/L (23-27); Allen Test Positive; Pt O2 Delivery Device Ventilator
[2019-01-04] MEDS: INSULIN REGULAR 100 UNIT/ML SUBCUT SCH ×3 (05:58→17:57)
[2019-01-04 09:37] LABS: Basophils # 0.2 10*3/uL (0.0-0.2); Basophils % 1.2 % (0.0-0.8); Eosinophils # 0.2 10*3/uL (0.0-0.87); Eosinophils % 1.2 % (0.00-10.9); Hematocrit 33.7 VOL% (35.7-47.0); Hemoglobin 10.4 GM/DL (12.0-16.0); Immature Granulocytes % 4.8 %; Immature Granulocytes Absolute 0.83 #; Lymphocytes # 1.9 10*3/uL (1.4-4.0); Lymphocytes % 11.3 % (21.3-54.2); Mean Corpuscular HGB Conc 30.9 GM/DL (32-36); Mean Corpuscular Volume 96.8 FL (87-102); Mean Platelet Volume 9.9 FL (9.6-12.0); Monocytes % 11.8 % (1.7-12.7); Neutrophils % 69.7 % (38.7-73.9); Platelet Count 503 T/CUMM (130-400); Red Blood Count 3.48 MC/CUMM (3.8-5.5); Red Cell Distribution Width 17.5 % (9.3-17.3); White Blood Count 17.2 T/CUMM (4-12)
[2019-01-04 09:56] LABS: Calcium 7.6 MG/DL (8.5-10.1)
[2019-01-04 10:08] LABS: Band Neutrophils 3 % (0-10); Eosinophils 1 % (0-10); Lymphocytes 7 % (20-55); Platelet Estimate Increased; Segmented Neutrophils 78 % (50-85); Total Cells Counted 100
[2019-01-04] MEDS: PANTOPRAZOLE 40 MG VIAL IV SCH (10:08)
[2019-01-04 10:09] LABS: Hypochromasia 1+
[2019-01-04] MEDS: SODIUM HYPOCHLORITE 0.25% IRRIG 473 ML BOTTLE TOP SCH (10:09)
[2019-01-04] MEDS: HYDROmorphone 2 MG/1 ML VIAL IV PRN ×2 (10:58→19:54)
[2019-01-04] MEDS: VANCOMYCIN INJ 1,250 MG in SODIUM CHLORIDE 0.9% 250 ML IV SCH (11:38)
[2019-01-04] MEDS: LEVOFLOXACIN INJ 750 MG in PREMIX 1 EACH IV SCH (12:52)
[2019-01-04] MEDS: ELECTROLYTE CONCENTRATE 40 ML, TRACE ELEMENTS (5) 1 ML, MULTIVITAMIN INJ 10 ML, POTASSI... IV SCH (17:41)
[2019-01-05] MEDS: VANCOMYCIN INJ 1,250 MG in SODIUM CHLORIDE 0.9% 250 ML IV SCH ×3 (00:27→22:34)
[2019-01-05] MEDS: fentaNYL INJ 2,500 MCG in DEXTROSE 5% 450 ML IV PRN ×3 (01:25→21:57)
[2019-01-05] MEDS: PHENYLEPHRINE DRIP 40 MG/250 ML PREMIX IV PRN ×4 (01:25→21:56)
[2019-01-05] MEDS: INSULIN REGULAR 100 UNIT/ML SUBCUT SCH ×4 (02:36→18:33)
[2019-01-05] MEDS: HYDROmorphone 2 MG/1 ML VIAL IV PRN ×4 (03:13→19:31)
[2019-01-05 04:53] LABS: ABG Base Excess 3.7 MMOL/L (-2.5-2.5); ABG HCO3 27.7 MMOL/L (20-26); ABG PCO2 55.2 MM HG (35-48); ABG TCO2 27.7 MMOL/L (23-27); Allen Test Positive; Pt O2 Delivery Device Ventilator
[2019-01-05 05:43] LABS: Basophils # 0.3 10*3/uL (0.0-0.2); Basophils % 1.4 % (0.0-0.8); Eosinophils # 0.2 10*3/uL (0.0-0.87); Eosinophils % 1.4 % (0.00-10.9); Hematocrit 33.1 VOL% (35.7-47.0); Hemoglobin 10.1 GM/DL (12.0-16.0); Immature Granulocytes Absolute 0.87 #; Lymphocytes # 2.3 10*3/uL (1.4-4.0); Lymphocytes % 13.1 % (21.3-54.2); Mean Corpuscular HGB Conc 30.5 GM/DL (32-36); Mean Corpuscular Volume 97.4 FL (87-102); Mean Platelet Volume 10.1 FL (9.6-12.0); Monocytes % 13.6 % (1.7-12.7); Neutrophils % 65.5 % (38.7-73.9); Platelet Count 557 T/CUMM (130-400); Red Cell Distribution Width 17.6 % (9.3-17.3); White Blood Count 17.5 T/CUMM (4-12)
[2019-01-05 06:07] LABS: Calcium 7.6 MG/DL (8.5-10.1); Osmolality,Calculated 283.1 MOS/KG (273-304)
[2019-01-05 06:18] LABS: Anisocytosis 1+; Band Neutrophils 10 % (0-10); Lymphocytes 15 % (20-55); Platelet Estimate Increased; Segmented Neutrophils 68 % (50-85); Smudge Cells 1+; Total Cells Counted 100
[2019-01-05 06:19] LABS: Macrocytosis Slight
[2019-01-05] MEDS ORDERED: LACTATED RINGERS 1,000 ML IV ONE ×2 (08:34→13:55)
[2019-01-05] MEDS: SODIUM HYPOCHLORITE 0.25% IRRIG 473 ML BOTTLE TOP SCH ×2 (08:40→21:17)
[2019-01-05] MEDS: PANTOPRAZOLE 40 MG VIAL IV SCH (09:59)
[2019-01-05] MEDS: LEVOFLOXACIN INJ 750 MG in PREMIX 1 EACH IV SCH (13:23)
[2019-01-05] MEDS ORDERED: ALBUMIN 25% 25 GM in PREMIX 1 EACH IV ONE (13:55)
[2019-01-05] MEDS: ELECTROLYTE CONCENTRATE 40 ML, TRACE ELEMENTS (5) 1 ML, MULTIVITAMIN INJ 10 ML, POTASSI... IV SCH (17:46)
[2019-01-06] MEDS: INSULIN REGULAR 100 UNIT/ML SUBCUT SCH ×4 (01:11→18:14)
[2019-01-06] MEDS: HYDROmorphone 2 MG/1 ML VIAL IV PRN ×9 (03:12→21:49)
[2019-01-06 04:19] LABS: ABG Base Excess 4.5 MMOL/L (-2.5-2.5); ABG HCO3 28.5 MMOL/L (20-26); ABG Oxygen Saturation 97.9 % (95-100); ABG PCO2 51.2 MM HG (35-48); ABG PH 7.385 (7.35-7.45); ABG TCO2 27.6 MMOL/L (23-27); Allen Test Positive; Pt O2 Delivery Device Ventilator
[2019-01-06] MEDS: fentaNYL INJ 2,500 MCG in DEXTROSE 5% 450 ML IV PRN ×2 (05:23→11:24)
[2019-01-06] MEDS: SODIUM HYPOCHLORITE 0.25% IRRIG 473 ML BOTTLE TOP SCH (09:15)
[2019-01-06] MEDS: PANTOPRAZOLE 40 MG VIAL IV SCH (09:37)
[2019-01-06] MEDS: LEVOFLOXACIN INJ 750 MG in PREMIX 1 EACH IV SCH (13:33)
[2019-01-06] MEDS: ELECTROLYTE CONCENTRATE 40 ML, TRACE ELEMENTS (5) 1 ML, MULTIVITAMIN INJ 10 ML, POTASSI... IV SCH (17:57)
[2019-01-06] MEDS: MYLANTA/LIDO VISC/NYST 180 ML BOTTLE SWISH/SPIT SCH (17:58)
[2019-01-07] MEDS: HYDROmorphone 2 MG/1 ML VIAL IV PRN ×10 (01:23→23:54)
[2019-01-07] MEDS: INSULIN REGULAR 100 UNIT/ML SUBCUT SCH ×4 (02:02→18:22)
[2019-01-07] MEDS: MYLANTA/LIDO VISC/NYST 180 ML BOTTLE SWISH/SPIT SCH ×5 (02:03→23:46)
[2019-01-07 05:51] LABS: Basophils # 0.1 10*3/uL (0.0-0.2); Basophils % 0.7 % (0.0-0.8); Eosinophils # 0.1 10*3/uL (0.0-0.87); Eosinophils % 0.9 % (0.00-10.9); Hematocrit 31.5 VOL% (35.7-47.0); Hemoglobin 10.1 GM/DL (12.0-16.0); Immature Granulocytes % 4.1 %; Immature Granulocytes Absolute 0.59 #; Lymphocytes # 1.4 10*3/uL (1.4-4.0); Lymphocytes % 9.6 % (21.3-54.2); Mean Corpuscular HGB Conc 32.1 GM/DL (32-36); Mean Corpuscular Volume 94.6 FL (87-102); Mean Platelet Volume 10.4 FL (9.6-12.0); Monocytes % 10.4 % (1.7-12.7); Neutrophils % 74.3 % (38.7-73.9); Platelet Count 462 T/CUMM (130-400); Red Blood Count 3.33 MC/CUMM (3.8-5.5); Red Cell Distribution Width 16.6 % (9.3-17.3); White Blood Count 14.4 T/CUMM (4-12)
[2019-01-07 06:02] LABS: Calcium 7.9 MG/DL (8.5-10.1); Osmolality,Calculated 280.4 MOS/KG (273-304)
[2019-01-07 06:12] LABS: Prealbumin 5.7 MG/DL (20-40)
[2019-01-07 06:50] LABS: Calcium 7.8 MG/DL (8.5-10.1); Osmolality,Calculated 275.8 MOS/KG (273-304)
[2019-01-07] MEDS: PANTOPRAZOLE 40 MG VIAL IV SCH (08:32)
[2019-01-07 09:35] LABS: Band Neutrophils 1 % (0-10); Lymphocytes 6 % (20-55); Metamyelocytes 1 %; Polychromasia Slight; Segmented Neutrophils 87 % (50-85); Total Cells Counted 100
[2019-01-07 09:36] LABS: Platelet Estimate Increased
[2019-01-07] MEDS: SODIUM HYPOCHLORITE 0.25% IRRIG 473 ML BOTTLE TOP SCH (11:22)
[2019-01-07] MEDS ORDERED: POTASSIUM CHLORIDE RIDER 10 MEQ in PREMIX 1 EACH IV PRN (12:38)
[2019-01-07] MEDS ORDERED: POTASSIUM CHLORIDE RIDER 20 MEQ in PREMIX 1 EACH IV PRN (12:38)
[2019-01-07] MEDS: LEVOFLOXACIN INJ 750 MG in PREMIX 1 EACH IV SCH (12:58)
[2019-01-07] MEDS: FAT EMULSION 20% 250 ML IV SCH (14:41)
[2019-01-07] MEDS: ELECTROLYTE CONCENTRATE 40 ML, TRACE ELEMENTS (5) 1 ML, MULTIVITAMIN INJ 10 ML, POTASSI... IV SCH (18:28)
[2019-01-08] MEDS: INSULIN REGULAR 100 UNIT/ML SUBCUT SCH ×4 (01:06→18:20)
[2019-01-08] MEDS: HYDROmorphone 2 MG/1 ML VIAL IV PRN ×9 (02:19→22:37)
[2019-01-08 04:45] LABS: Basophils # 0.2 10*3/uL (0.0-0.2); Basophils % 1.3 % (0.0-0.8); Eosinophils # 0.3 10*3/uL (0.0-0.87); Hematocrit 33.2 VOL% (35.7-47.0); Hemoglobin 10.6 GM/DL (12.0-16.0); Immature Granulocytes % 7.3 %; Immature Granulocytes Absolute 0.93 #; Lymphocytes # 1.7 10*3/uL (1.4-4.0); Lymphocytes % 13.1 % (21.3-54.2); Mean Corpuscular HGB Conc 31.9 GM/DL (32-36); Mean Corpuscular Volume 94.1 FL (87-102); Mean Platelet Volume 10.3 FL (9.6-12.0); Monocytes % 14.5 % (1.7-12.7); Neutrophils % 61.8 % (38.7-73.9); Platelet Count 491 T/CUMM (130-400); Red Blood Count 3.53 MC/CUMM (3.8-5.5); Red Cell Distribution Width 16.4 % (9.3-17.3); White Blood Count 12.8 T/CUMM (4-12)
[2019-01-08 05:12] LABS: Band Neutrophils 3 % (0-10); Eosinophils 1 % (0-10); Lymphocytes 20 % (20-55); Segmented Neutrophils 67 % (50-85); Total Cells Counted 100
[2019-01-08 05:13] LABS: Hypochromasia 1+; Platelet Estimate Adequate
[2019-01-08 05:44] LABS: Alanine Aminotransferase 42 U/L (13-56); Albumin 1.3 G/DL (3.4-5.0); Alkaline Phosphatase 410 U/L (45-117); Aspartate Amino Transferase 96 U/L (0-37); Bilirubin,Total < 0.39 MG/DL (0.2-1.0); Blood Urea Nitrogen 15 MG/DL (7-18); Calcium 7.9 MG/DL (8.5-10.1); Estimated Glom Filtration Rate 161 ML/MIN; Glucose 98 MG/DL (74-106); Osmolality,Calculated 275.7 MOS/KG (273-304); Total Protein 5.7 G/DL (6.4-8.3)
[2019-01-08] MEDS: MYLANTA/LIDO VISC/NYST 180 ML BOTTLE SWISH/SPIT SCH ×3 (06:27→18:28)
[2019-01-08] MEDS: SODIUM HYPOCHLORITE 0.25% IRRIG 473 ML BOTTLE TOP SCH (10:05)
[2019-01-08] MEDS: PANTOPRAZOLE 40 MG VIAL IV SCH (10:05)
[2019-01-08] MEDS: LEVOFLOXACIN INJ 750 MG in PREMIX 1 EACH IV SCH (13:27)
[2019-01-08] MEDS: FAT EMULSION 20% 250 ML IV SCH (15:13)
[2019-01-08] MEDS: ELECTROLYTE CONCENTRATE 40 ML, TRACE ELEMENTS (5) 1 ML, MULTIVITAMIN INJ 10 ML, POTASSI... IV SCH (18:00)
[2019-01-08] MEDS: CALCIUM CARBONATE CHEW 500 MG TABLET PO SCH (20:23)
[2019-01-09] MEDS: HYDROmorphone 2 MG/1 ML VIAL IV PRN ×9 (00:40→21:10)
[2019-01-09] MEDS: MYLANTA/LIDO VISC/NYST 180 ML BOTTLE SWISH/SPIT SCH ×5 (00:40→23:05)
[2019-01-09] MEDS: INSULIN REGULAR 100 UNIT/ML SUBCUT SCH ×4 (01:36→17:41)
[2019-01-09 04:45] LABS: Basophils # 0.2 10*3/uL (0.0-0.2); Basophils % 1.4 % (0.0-0.8); Eosinophils # 0.2 10*3/uL (0.0-0.87); Eosinophils % 1.3 % (0.00-10.9); Hemoglobin 10.4 GM/DL (12.0-16.0); Immature Granulocytes % 7.9 %; Immature Granulocytes Absolute 1.19 #; Lymphocytes # 1.8 10*3/uL (1.4-4.0); Lymphocytes % 12.1 % (21.3-54.2); Mean Corpuscular HGB Conc 32.5 GM/DL (32-36); Mean Corpuscular Volume 91.7 FL (87-102); Mean Platelet Volume 10.1 FL (9.6-12.0); Monocytes % 15.7 % (1.7-12.7); Neutrophils % 61.6 % (38.7-73.9); Platelet Count 529 T/CUMM (130-400); Red Blood Count 3.49 MC/CUMM (3.8-5.5); Red Cell Distribution Width 16.5 % (9.3-17.3)
[2019-01-09 05:19] LABS: Albumin 1.6 G/DL (3.4-5.0); Bilirubin,Total 0.4 MG/DL (0.2-1.0); Calcium 8.1 MG/DL (8.5-10.1); Osmolality,Calculated 271.1 MOS/KG (273-304); Total Protein 5.8 G/DL (6.4-8.3)
[2019-01-09 05:23] LABS: Band Neutrophils 4 % (0-10); Hypochromasia 1+; Lymphocytes 11 % (20-55); Platelet Estimate Adequate; Segmented Neutrophils 74 % (50-85); Total Cells Counted 100
[2019-01-09] MEDS: PANTOPRAZOLE 40 MG VIAL IV SCH (08:55)
[2019-01-09] MEDS: CALCIUM CARBONATE CHEW 500 MG TABLET PO SCH ×2 (08:55→21:45)
[2019-01-09] MEDS: SODIUM HYPOCHLORITE 0.25% IRRIG 473 ML BOTTLE TOP SCH (09:09)
[2019-01-09] MEDS: ONDANSETRON 4 MG/2 ML VIAL IV PRN ×2 (11:50→21:10)
[2019-01-09] MEDS: LEVOFLOXACIN INJ 750 MG in PREMIX 1 EACH IV SCH (12:19)
[2019-01-09] MEDS: FAT EMULSION 20% 250 ML IV SCH (15:13)
[2019-01-09] MEDS: ELECTROLYTE CONCENTRATE 40 ML, TRACE ELEMENTS (5) 1 ML, MULTIVITAMIN INJ 10 ML, POTASSI... IV SCH (17:41)
[2019-01-10] MEDS: INSULIN REGULAR 100 UNIT/ML SUBCUT SCH ×4 (00:34→17:44)
[2019-01-10] MEDS: HYDROmorphone 2 MG/1 ML VIAL IV PRN ×5 (01:04→17:30)
[2019-01-10] MEDS: ONDANSETRON 4 MG/2 ML VIAL IV PRN ×2 (02:15→10:18)
[2019-01-10] MEDS: MYLANTA/LIDO VISC/NYST 180 ML BOTTLE SWISH/SPIT SCH ×3 (05:15→17:45)
[2019-01-10 05:41] LABS: Basophils # 0.2 10*3/uL (0.0-0.2); Basophils % 1.2 % (0.0-0.8); Eosinophils # 0.3 10*3/uL (0.0-0.87); Eosinophils % 1.8 % (0.00-10.9); Hematocrit 31.5 VOL% (35.7-47.0); Hemoglobin 10.2 GM/DL (12.0-16.0); Immature Granulocytes % 10.3 %; Immature Granulocytes Absolute 1.57 #; Lymphocytes # 1.8 10*3/uL (1.4-4.0); Mean Corpuscular HGB Conc 32.4 GM/DL (32-36); Mean Corpuscular Volume 91.8 FL (87-102); Mean Platelet Volume 10.4 FL (9.6-12.0); Monocytes % 17.8 % (1.7-12.7); Neutrophils % 56.9 % (38.7-73.9); Platelet Count 543 T/CUMM (130-400); Red Blood Count 3.43 MC/CUMM (3.8-5.5); Red Cell Distribution Width 16.8 % (9.3-17.3); White Blood Count 15.3 T/CUMM (4-12)
[2019-01-10 06:02] LABS: Alanine Aminotransferase 39 U/L (13-56); Albumin 1.6 G/DL (3.4-5.0); Alkaline Phosphatase 403 U/L (45-117); Aspartate Amino Transferase 49 U/L (0-37); Bilirubin,Total < 0.39 MG/DL (0.2-1.0); Blood Urea Nitrogen 18 MG/DL (7-18); Calcium 7.9 MG/DL (8.5-10.1); Estimated Glom Filtration Rate 138 ML/MIN; Glucose 104 MG/DL (74-106); Total Protein 5.9 G/DL (6.4-8.3)
[2019-01-10 06:09] LABS: Prealbumin 12.5 MG/DL (20-40)
[2019-01-10 06:28] LABS: Band Neutrophils 4 % (0-10); Eosinophils 3 % (0-10); Hypochromasia 1+; Lymphocytes 5 % (20-55); Platelet Estimate Increased; Segmented Neutrophils 69 % (50-85); Total Cells Counted 100
[2019-01-10] MEDS: CALCIUM CARBONATE CHEW 500 MG TABLET PO SCH ×2 (08:42→20:35)
[2019-01-10] MEDS: PANTOPRAZOLE 40 MG VIAL IV SCH (08:42)
[2019-01-10] MEDS ORDERED: ALBUMIN 25% 25 GM in PREMIX 1 EACH IV ONE (10:01)
[2019-01-10] MEDS ORDERED: KETOROLAC 30 MG/1 ML VIAL IV ONE (11:09)
[2019-01-10] MEDS: LEVOFLOXACIN INJ 750 MG in PREMIX 1 EACH IV SCH (14:08)
[2019-01-10] MEDS: FAT EMULSION 20% 250 ML IV SCH (15:32)
[2019-01-10] MEDS: ELECTROLYTE CONCENTRATE 40 ML, TRACE ELEMENTS (5) 1 ML, MULTIVITAMIN INJ 10 ML, POTASSI... IV SCH (20:20)
[2019-01-10] MEDS: KETOROLAC 15 MG/1 ML VIAL IV PRN (20:35)
[2019-01-10] MEDS: SODIUM HYPOCHLORITE 0.25% IRRIG 473 ML BOTTLE TOP SCH (20:43)
[2019-01-11] MEDS: MYLANTA/LIDO VISC/NYST 180 ML BOTTLE SWISH/SPIT SCH ×4 (00:05→17:58)
[2019-01-11] MEDS: INSULIN REGULAR 100 UNIT/ML SUBCUT SCH ×4 (00:58→19:07)
[2019-01-11] MEDS: ONDANSETRON 4 MG/2 ML VIAL IV PRN ×4 (02:55→22:32)
[2019-01-11] MEDS: HYDROmorphone 2 MG/1 ML VIAL IV PRN ×4 (02:55→22:13)
[2019-01-11] MEDS: KETOROLAC 15 MG/1 ML VIAL IV PRN ×2 (04:30→17:52)
[2019-01-11 05:15] LABS: Basophils # 0.3 10*3/uL (0.0-0.2); Basophils % 1.9 % (0.0-0.8); Eosinophils # 0.4 10*3/uL (0.0-0.87); Eosinophils % 2.3 % (0.00-10.9); Hematocrit 34.7 VOL% (35.7-47.0); Hemoglobin 10.9 GM/DL (12.0-16.0); Immature Granulocytes % 10.5 %; Immature Granulocytes Absolute 1.75 #; Lymphocytes # 1.5 10*3/uL (1.4-4.0); Lymphocytes % 9.2 % (21.3-54.2); Mean Corpuscular HGB Conc 31.4 GM/DL (32-36); Mean Platelet Volume 10.3 FL (9.6-12.0); Monocytes % 12.1 % (1.7-12.7); Platelet Count 701 T/CUMM (130-400); Red Blood Count 3.69 MC/CUMM (3.8-5.5); Red Cell Distribution Width 16.8 % (9.3-17.3); White Blood Count 16.7 T/CUMM (4-12)
[2019-01-11 05:35] LABS: Albumin 2.1 G/DL (3.4-5.0); Bilirubin,Total 0.4 MG/DL (0.2-1.0); Calcium 8.4 MG/DL (8.5-10.1); Osmolality,Calculated 281.5 MOS/KG (273-304); Total Protein 6.6 G/DL (6.4-8.3)
[2019-01-11 05:57] LABS: Total Cells Counted 100
[2019-01-11 05:58] LABS: Band Neutrophils 2 % (0-10); Eosinophils 3 % (0-10); Lymphocytes 8 % (20-55); Metamyelocytes 6 %; Platelet Estimate Increased; Segmented Neutrophils 65 % (50-85)
[2019-01-11 05:59] LABS: Anisocytosis Slight; Macrocytosis Slight
[2019-01-11] MEDS: PANTOPRAZOLE 40 MG VIAL IV SCH (09:15)
[2019-01-11] MEDS: CALCIUM CARBONATE CHEW 500 MG TABLET PO SCH ×2 (09:40→22:29)
[2019-01-11] MEDS: SODIUM HYPOCHLORITE 0.25% IRRIG 473 ML BOTTLE TOP SCH (09:57)
[2019-01-11] MEDS ORDERED: HYDROcod/ACETAMIN 7.5-325 MG/15 ML UDCUP PO PRN (10:38)
[2019-01-11] MEDS: PROMETHAZINE 25 MG/1 ML VIAL IM PRN ×2 (14:39→17:55)
[2019-01-11] MEDS: FAT EMULSION 20% 250 ML IV SCH (16:56)
[2019-01-12] MEDS: INSULIN REGULAR 100 UNIT/ML SUBCUT SCH ×4 (00:55→18:54)
[2019-01-12] MEDS: MYLANTA/LIDO VISC/NYST 180 ML BOTTLE SWISH/SPIT SCH ×4 (01:11→18:03)
[2019-01-12] MEDS: KETOROLAC 15 MG/1 ML VIAL IV PRN ×2 (01:11→08:35)
[2019-01-12] MEDS: HYDROmorphone 2 MG/1 ML VIAL IV PRN ×4 (02:57→20:54)
[2019-01-12] MEDS: ONDANSETRON 4 MG/2 ML VIAL IV PRN ×4 (02:57→20:49)
[2019-01-12 06:55] LABS: Basophils # 0.2 10*3/uL (0.0-0.2); Basophils % 1.4 % (0.0-0.8); Eosinophils # 0.7 10*3/uL (0.0-0.87); Hematocrit 30.6 VOL% (35.7-47.0); Hemoglobin 9.9 GM/DL (12.0-16.0); Immature Granulocytes % 7.7 %; Immature Granulocytes Absolute 1.29 #; Lymphocytes % 11.8 % (21.3-54.2); Mean Corpuscular HGB Conc 32.4 GM/DL (32-36); Mean Corpuscular Volume 91.6 FL (87-102); Mean Platelet Volume 9.5 FL (9.6-12.0); Monocytes % 16.7 % (1.7-12.7); Neutrophils % 58.4 % (38.7-73.9); Platelet Count 863 T/CUMM (130-400); Red Blood Count 3.34 MC/CUMM (3.8-5.5); Red Cell Distribution Width 16.6 % (9.3-17.3); White Blood Count 16.9 T/CUMM (4-12)
[2019-01-12 07:20] LABS: Albumin 2.1 G/DL (3.4-5.0); Bilirubin,Total 1.3 MG/DL (0.2-1.0); Calcium 8.4 MG/DL (8.5-10.1); Osmolality,Calculated 273.8 MOS/KG (273-304); Total Protein 6.3 G/DL (6.4-8.3)
[2019-01-12 07:26] LABS: Band Neutrophils 4 % (0-10); Eosinophils 5 % (0-10); Hypochromasia 1+; Lymphocytes 11 % (20-55); Myelocytes 1 %; Nucleated Red Blood Cells 1 (0-5); Segmented Neutrophils 61 % (50-85); Total Cells Counted 100
[2019-01-12 07:27] LABS: Giant Platelets Few; Microcytosis 1+; Platelet Estimate Increased
[2019-01-12 07:28] LABS: Anisocytosis 1+
[2019-01-12] MEDS: PANTOPRAZOLE 40 MG VIAL IV SCH (08:37)
[2019-01-12] MEDS: DULoxetine 30 MG CAPSULE PO SCH (08:38)
[2019-01-12] MEDS: CALCIUM CARBONATE CHEW 500 MG TABLET PO SCH ×2 (08:38→20:48)
[2019-01-12] MEDS: SODIUM HYPOCHLORITE 0.25% IRRIG 473 ML BOTTLE TOP SCH (08:39)
[2019-01-13] MEDS: KETOROLAC 15 MG/1 ML VIAL IV PRN ×2 (00:10→15:19)
[2019-01-13] MEDS: INSULIN REGULAR 100 UNIT/ML SUBCUT SCH ×4 (00:16→19:04)
[2019-01-13] MEDS: HYDROmorphone 2 MG/1 ML VIAL IV PRN ×8 (01:42→22:49)
[2019-01-13] MEDS: ONDANSETRON 4 MG/2 ML VIAL IV PRN ×4 (01:50→20:19)
[2019-01-13 08:50] LABS: Basophils # 0.3 10*3/uL (0.0-0.2); Basophils % 1.7 % (0.0-0.8); Eosinophils % 6.1 % (0.00-10.9); Hematocrit 32.4 VOL% (35.7-47.0); Hemoglobin 10.3 GM/DL (12.0-16.0); Immature Granulocytes % 8.3 %; Immature Granulocytes Absolute 1.32 #; Lymphocytes # 2.1 10*3/uL (1.4-4.0); Lymphocytes % 13.1 % (21.3-54.2); Mean Corpuscular HGB Conc 31.8 GM/DL (32-36); Mean Corpuscular Volume 92.6 FL (87-102); Mean Platelet Volume 9.4 FL (9.6-12.0); Neutrophils % 54.8 % (38.7-73.9); Red Cell Distribution Width 16.3 % (9.3-17.3); White Blood Count 15.9 T/CUMM (4-12)
[2019-01-13 08:53] LABS: Platelet Count 1053 T/CUMM (130-400)
[2019-01-13 09:14] LABS: Calcium 8.8 MG/DL (8.5-10.1); Osmolality,Calculated 270.1 MOS/KG (273-304)
[2019-01-13 09:18] LABS: Band Neutrophils 3 % (0-10); Eosinophils 6 % (0-10); Lymphocytes 18 % (20-55); Metamyelocytes 1 %; Myelocytes 1 %; Segmented Neutrophils 57 % (50-85); Total Cells Counted 100
[2019-01-13 09:19] LABS: Atypical Lymphocytes Few; Hypochromasia 1+; Microcytosis 1+; Platelet Estimate Increased
[2019-01-13] MEDS: CALCIUM CARBONATE CHEW 500 MG TABLET PO SCH ×3 (09:53→20:16)
[2019-01-13] MEDS: DULoxetine 30 MG CAPSULE PO SCH (09:53)
[2019-01-13] MEDS: PANTOPRAZOLE 40 MG VIAL IV SCH (09:53)
[2019-01-13] MEDS: SODIUM HYPOCHLORITE 0.25% IRRIG 473 ML BOTTLE TOP SCH (11:49)
[2019-01-13] MEDS: MYLANTA/LIDO VISC/NYST 180 ML BOTTLE SWISH/SPIT SCH ×4 (11:49→18:26)
[2019-01-13] MEDS ORDERED: FAT EMULSION 20% 250 ML IV SCH (14:00)
[2019-01-13] MEDS: PIPERACILLIN/TAZOBACTAM 3,375 MG in SODIUM CHLORIDE 0.9% 100 ML IV SCH (15:09)
[2019-01-13] MEDS: PROMETHAZINE 25 MG/1 ML VIAL IM PRN (15:09)
[2019-01-13] MEDS ORDERED: POTASSIUM PHOSPHATE IV SCH (17:00)
[2019-01-13] MEDS ORDERED: MULTIVITAMIN IV SCH (17:00)
[2019-01-13] MEDS ORDERED: ELECTROLYTE IV SCH (17:00)
[2019-01-13] MEDS ORDERED: [UNRECOGNIZED DRUG - OTHER] IV SCH (17:00)
[2019-01-14] MEDS: PIPERACILLIN/TAZOBACTAM 3,375 MG in SODIUM CHLORIDE 0.9% 100 ML IV SCH ×2 (00:40→08:41)
[2019-01-14] MEDS: MYLANTA/LIDO VISC/NYST 180 ML BOTTLE SWISH/SPIT SCH ×3 (00:45→12:27)
[2019-01-14] MEDS: INSULIN REGULAR 100 UNIT/ML SUBCUT SCH ×3 (01:20→11:48)
[2019-01-14] MEDS: HYDROmorphone 2 MG/1 ML VIAL IV PRN ×4 (02:03→12:26)
[2019-01-14] MEDS: ONDANSETRON 4 MG/2 ML VIAL IV PRN ×3 (02:03→12:27)
[2019-01-14 05:37] LABS: Basophils # 0.3 10*3/uL (0.0-0.2); Basophils % 1.8 % (0.0-0.8); Eosinophils # 1.1 10*3/uL (0.0-0.87); Eosinophils % 7.5 % (0.00-10.9); Hematocrit 33.5 VOL% (35.7-47.0); Hemoglobin 10.6 GM/DL (12.0-16.0); Immature Granulocytes % 7.8 %; Immature Granulocytes Absolute 1.09 #; Lymphocytes # 1.7 10*3/uL (1.4-4.0); Lymphocytes % 11.8 % (21.3-54.2); Mean Corpuscular HGB Conc 31.6 GM/DL (32-36); Mean Corpuscular Volume 93.3 FL (87-102); Mean Platelet Volume 9.6 FL (9.6-12.0); Neutrophils % 59.1 % (38.7-73.9); Red Blood Count 3.59 MC/CUMM (3.8-5.5); Red Cell Distribution Width 15.9 % (9.3-17.3)
[2019-01-14 05:43] LABS: Platelet Count 1106 T/CUMM (130-400)
[2019-01-14 06:04] LABS: Eosinophils 7 % (0-10); Hypochromasia 1+; Lymphocytes 10 % (20-55); Microcytosis 1+; Platelet Estimate Increased; Segmented Neutrophils 64 % (50-85); Total Cells Counted 100
[2019-01-14 06:09] LABS: Albumin 2.3 G/DL (3.4-5.0); Bilirubin,Total 0.9 MG/DL (0.2-1.0); Calcium 8.9 MG/DL (8.5-10.1); Osmolality,Calculated 271.1 MOS/KG (273-304); Total Protein 6.9 G/DL (6.4-8.3)
[2019-01-14 06:18] LABS: Calcium 8.6 MG/DL (8.5-10.1); Prealbumin 11.7 MG/DL (20-40)
[2019-01-14] MEDS: PANTOPRAZOLE 40 MG VIAL IV SCH (08:42)
[2019-01-14] MEDS: DULoxetine 30 MG CAPSULE PO SCH (08:42)
[2019-01-14] MEDS: SODIUM HYPOCHLORITE 0.25% IRRIG 473 ML BOTTLE TOP SCH (08:58)
[2019-01-14] MEDS: CALCIUM CARBONATE CHEW 500 MG TABLET PO SCH (08:58)
[2019-01-14 11:23] VITALS: BP 108/62
[2019-01-14] MEDS ORDERED: DEXTROSE 10% 1,000 ML IV PRN (17:00)
[2019-01-14] MEDS ORDERED: ELECTROLYTE CONCENTRATE 40 ML, TRACE ELEMENTS (5) 1 ML, MULTIVITAMIN INJ 10 ML, POTASSI... IV SCH (17:00)
== END 2019-01-14 13:45 | DRG 853 ==
LOC: N.ED 08:40 → SUATTDRO 10:35 → N.EDINP 10:35 → N.CC 11:09 → N.3E 01-08 12:13
PROVIDERS: ADMIT Surgery; ATTEND Surgery

== ENCOUNTER 2019-03-11 12:47 | Inpatient (IN) ==
[2019-03-11] MEDS ORDERED: SODIUM CHLORIDE 0.9% 1,000 ML IV STA (13:13)
[2019-03-11] MEDS ORDERED: HYDROmorphone 2 MG/1 ML VIAL IV STA (13:13)
[2019-03-11] MEDS ORDERED: ONDANSETRON 4 MG/2 ML VIAL IV STA (13:13)
[2019-03-11 13:50] LABS: Basophils % 0.3 % (0.0-0.8); Eosinophils # 0.1 10*3/uL (0.0-0.87); Eosinophils % 0.6 % (0.00-10.9); Hematocrit 37.6 VOL% (35.7-47.0); Hemoglobin 11.8 GM/DL (12.0-16.0); Immature Granulocytes % 0.3 %; Immature Granulocytes Absolute 0.04 #; Lymphocytes # 2.4 10*3/uL (1.4-4.0); Lymphocytes % 20.8 % (21.3-54.2); Mean Corpuscular HGB Conc 31.4 GM/DL (32-36); Mean Corpuscular Volume 88.7 FL (87-102); Mean Platelet Volume 8.6 FL (9.6-12.0); Monocytes % 11.7 % (1.7-12.7); Neutrophils % 66.3 % (38.7-73.9); Platelet Count 513 T/CUMM (130-400); Red Blood Count 4.24 MC/CUMM (3.8-5.5); Red Cell Distribution Width 16.5 % (9.3-17.3); White Blood Count 11.4 T/CUMM (4-12)
[2019-03-11] MEDS ORDERED: ACETAMINOPHEN 325 MG TABLET PO PRN (13:52)
[2019-03-11] MEDS ORDERED: ALBUTEROL/IPRATROPIUM 3 ML NEB RESP TX PRN (13:52)
[2019-03-11 14:00] LABS: PT Patient Result 11.1 SECS (9.6-12.2)
[2019-03-11 14:22] LABS: Albumin 2.2 G/DL (3.4-5.0); Bilirubin,Total 0.4 MG/DL (0.2-1.0); Calcium 8.7 MG/DL (8.5-10.1); Osmolality,Calculated 265.2 MOS/KG (273-304); Total Protein 6.3 G/DL (6.4-8.3)
[2019-03-11 14:44] LABS: Apearance,Urine CLEAR (Clear); Bacteria,Urine Occasional /HPF (Few); Bilirubin,Urine Negative (Negative); Blood, Urine Negative (Negative); Glucose,Urine (UA) Negative (Negative); Hyaline Casts,Urine 5 /LPF (0-3); Ketones,Urine Negative (Negative); Mucus,Urine Many /LPF (Occasional); Nitrite,Urine Negative (Negative); Protein,Urine Negative; RBC,Urine 2 /HPF (0-4); Squamous Epithelial Cell,Urine Occasional /HPF (0-10); Transitional Epi Cells,Urine Occasional /HPF (<1); Urine Color Amber (Yellow); Urine Specific Gravity 1.026 (1.001-1.035); WBC,Urine 3 /HPF (0-6)
[2019-03-11] MEDS: LACTATED RINGERS 1,000 ML IV SCH (16:34)
[2019-03-11] MEDS: PIPERACILLIN/TAZOBACTAM 3,375 MG in SODIUM CHLORIDE 0.9% 100 ML IV SCH ×2 (17:04→23:44)
[2019-03-11] MEDS: ONDANSETRON 4 MG/2 ML VIAL IV PRN (17:04)
[2019-03-11] MEDS: KETOROLAC 15 MG/1 ML VIAL IV PRN ×2 (17:04→23:52)
[2019-03-11] MEDS: HYDROmorphone 2 MG/1 ML VIAL IV PRN (18:10)
[2019-03-11] MEDS: tiZANidine 4 MG TABLET PO SCH (20:30)
[2019-03-11] MEDS: PREGABALIN 75 MG CAPSULE PO SCH (20:30)
[2019-03-12 05:21] LABS: Basophils % 0.6 % (0.0-0.8); Eosinophils # 0.2 10*3/uL (0.0-0.87); Hematocrit 33.8 VOL% (35.7-47.0); Hemoglobin 10.6 GM/DL (12.0-16.0); Immature Granulocytes % 0.5 %; Immature Granulocytes Absolute 0.03 #; Lymphocytes # 1.6 10*3/uL (1.4-4.0); Lymphocytes % 23.5 % (21.3-54.2); Mean Corpuscular HGB Conc 31.4 GM/DL (32-36); Mean Corpuscular Volume 89.4 FL (87-102); Mean Platelet Volume 9.6 FL (9.6-12.0); Monocytes % 13.7 % (1.7-12.7); Neutrophils % 58.7 % (38.7-73.9); Platelet Count 447 T/CUMM (130-400); Red Blood Count 3.78 MC/CUMM (3.8-5.5); Red Cell Distribution Width 16.6 % (9.3-17.3); White Blood Count 6.6 T/CUMM (4-12)
[2019-03-12 05:46] LABS: Albumin 1.6 G/DL (3.4-5.0); Bilirubin,Total 0.5 MG/DL (0.2-1.0); Calcium 8.2 MG/DL (8.5-10.1); Osmolality,Calculated 276.3 MOS/KG (273-304); Total Protein 4.9 G/DL (6.4-8.3)
[2019-03-12] MEDS: HYDROmorphone 2 MG/1 ML VIAL IV PRN ×4 (07:13→21:50)
[2019-03-12] MEDS: ONDANSETRON 4 MG/2 ML VIAL IV PRN ×2 (07:13→12:36)
[2019-03-12] MEDS: LACTATED RINGERS 1,000 ML IV SCH ×3 (07:19→18:08)
[2019-03-12] MEDS: PIPERACILLIN/TAZOBACTAM 3,375 MG in SODIUM CHLORIDE 0.9% 100 ML IV SCH ×2 (08:47→16:46)
[2019-03-12] MEDS: PREGABALIN 75 MG CAPSULE PO SCH ×2 (08:48→21:12)
[2019-03-12] MEDS: PANTOPRAZOLE 40 MG TABLET PO SCH (08:48)
[2019-03-12] MEDS: FLUoxetine 20 MG CAPSULE PO SCH (08:48)
[2019-03-12] MEDS: METOCLOPRAMIDE 10 MG TABLET PO SCH ×3 (11:22→21:12)
[2019-03-12] MEDS: FOLIC ACID 1 MG TABLET PO SCH (21:12)
[2019-03-12] MEDS: tiZANidine 4 MG TABLET PO SCH (21:12)
[2019-03-12] MEDS: ACYCLOVIR 200 MG CAPSULE PO SCH (21:13)
[2019-03-13] MEDS: LACTATED RINGERS 1,000 ML IV SCH ×4 (00:37→23:51)
[2019-03-13] MEDS: PIPERACILLIN/TAZOBACTAM 3,375 MG in SODIUM CHLORIDE 0.9% 100 ML IV SCH ×3 (00:44→17:34)
[2019-03-13] MEDS: ONDANSETRON 4 MG/2 ML VIAL IV PRN ×2 (04:21→21:52)
[2019-03-13] MEDS: HYDROmorphone 2 MG/1 ML VIAL IV PRN ×8 (04:21→21:53)
[2019-03-13] MEDS: METOCLOPRAMIDE 10 MG TABLET PO SCH ×4 (07:30→21:34)
[2019-03-13] MEDS ORDERED: MIDAZOLAM 2 MG/2 ML VIAL IV ONE (08:00)
[2019-03-13] MEDS ORDERED: fentaNYL 100 MCG/2 ML VIAL IV ONE (08:00)
[2019-03-13] MEDS ORDERED: MIDAZOLAM 2 MG/2 ML VIAL ONE ×2 (08:53→12:29)
[2019-03-13] MEDS ORDERED: fentaNYL 100 MCG/2 ML VIAL ONE ×2 (08:53→12:30)
[2019-03-13] MEDS ORDERED: BUPIVACAINE 0.5% /EPI 10 ML VIAL ONE (10:27)
[2019-03-13] MEDS ORDERED: ONDANSETRON 4 MG/2 ML VIAL IV PRN (12:23)
[2019-03-13] MEDS ORDERED: PROPOFOL 200 MG/20 ML VIAL IV ONE (12:28)
[2019-03-13] MEDS ORDERED: DEXTROSE 50% 25 GM/50 ML VIAL IV ONE (12:28)
[2019-03-13] MEDS ORDERED: SEVOFLURANE 1 UNIT/15 MINUTE INH ONE (12:28)
[2019-03-13] MEDS ORDERED: LIDOCAINE 2% 5 ML VIAL ONE (12:28)
[2019-03-13] MEDS ORDERED: ePHEDrine 50 MG/ML AMP ONE (12:29)
[2019-03-13] MEDS ORDERED: ONDANSETRON 4 MG/2 ML VIAL ONE ×2 (12:29→12:30)
[2019-03-13] MEDS ORDERED: PHENYLEPHRINE 1 MG/10 ML SYRINGE IV ONE (12:30)
[2019-03-13] MEDS ORDERED: LACTATED RINGERS 1,000 ML IV ONE (12:30)
[2019-03-13] MEDS ORDERED: NEOSTIGMINE 10 MG/10 ML VIAL ONE (12:30)
[2019-03-13] MEDS ORDERED: ROCURONIUM 100 MG/10 ML VIAL IV ONE (12:30)
[2019-03-13] MEDS ORDERED: ETOMIDATE 40 MG/20 ML VIAL IV ONE (12:30)
[2019-03-13] MEDS ORDERED: GLYCOPYRROLATE 0.4 MG/2 ML VIAL ONE (12:30)
[2019-03-13] MEDS ORDERED: HYDROmorphone 2 MG/1 ML VIAL ONE (12:30)
[2019-03-13] MEDS: PANTOPRAZOLE 40 MG TABLET PO SCH (17:39)
[2019-03-13] MEDS: PREGABALIN 75 MG CAPSULE PO SCH ×2 (17:40→21:34)
[2019-03-13] MEDS: FOLIC ACID 1 MG TABLET PO SCH ×3 (17:40→21:47)
[2019-03-13] MEDS: FLUoxetine 20 MG CAPSULE PO SCH (17:41)
[2019-03-13] MEDS: ACYCLOVIR 200 MG CAPSULE PO SCH ×2 (17:41→21:33)
[2019-03-13] MEDS: tiZANidine 4 MG TABLET PO SCH (21:34)
[2019-03-14] MEDS: PIPERACILLIN/TAZOBACTAM 3,375 MG in SODIUM CHLORIDE 0.9% 100 ML IV SCH ×3 (01:00→16:46)
[2019-03-14] MEDS: HYDROmorphone 2 MG/1 ML VIAL IV PRN ×5 (03:18→23:46)
[2019-03-14] MEDS ORDERED: ePHEDrine 50 MG/ML AMP ONE (06:56)
[2019-03-14] MEDS: LACTATED RINGERS 1,000 ML IV SCH ×3 (07:53→18:23)
[2019-03-14] MEDS: ACYCLOVIR 200 MG CAPSULE PO SCH ×2 (09:29→21:01)
[2019-03-14] MEDS: FOLIC ACID 1 MG TABLET PO SCH ×2 (09:29→21:01)
[2019-03-14] MEDS: FLUoxetine 20 MG CAPSULE PO SCH (09:30)
[2019-03-14] MEDS: PANTOPRAZOLE 40 MG TABLET PO SCH (09:30)
[2019-03-14] MEDS: METOCLOPRAMIDE 10 MG TABLET PO SCH ×4 (09:31→21:01)
[2019-03-14] MEDS: PREGABALIN 75 MG CAPSULE PO SCH ×2 (09:31→21:01)
[2019-03-14] MEDS: ONDANSETRON 4 MG/2 ML VIAL IV PRN (09:33)
[2019-03-14] MEDS ORDERED: ETOMIDATE 20 MG/10 ML VIAL IV ONE (10:00)
[2019-03-14] MEDS ORDERED: LIDOCAINE 2% 5 ML VIAL ONE (10:00)
[2019-03-14] MEDS ORDERED: PROPOFOL 200 MG/20 ML VIAL IV ONE (10:00)
[2019-03-14] MEDS: tiZANidine 4 MG TABLET PO SCH (21:01)
[2019-03-15] MEDS: PIPERACILLIN/TAZOBACTAM 3,375 MG in SODIUM CHLORIDE 0.9% 100 ML IV SCH ×3 (00:56→10:20)
[2019-03-15] MEDS: LACTATED RINGERS 1,000 ML IV SCH ×2 (04:22→06:15)
[2019-03-15] MEDS: HYDROmorphone 2 MG/1 ML VIAL IV PRN (06:11)
[2019-03-15] MEDS: ONDANSETRON 4 MG/2 ML VIAL IV PRN (06:15)
[2019-03-15] MEDS ORDERED: diphenhydrAMINE CAP 25 MG CAPSULE PO ONE (07:11)
[2019-03-15 07:52] LABS: Basophils % 0.2 % (0.0-0.8); Eosinophils # 0.3 10*3/uL (0.0-0.87); Eosinophils % 2.7 % (0.00-10.9); Hematocrit 32.8 VOL% (35.7-47.0); Hemoglobin 10.2 GM/DL (12.0-16.0); Immature Granulocytes % 0.6 %; Immature Granulocytes Absolute 0.08 #; Lymphocytes # 1.7 10*3/uL (1.4-4.0); Lymphocytes % 13.4 % (21.3-54.2); Mean Corpuscular HGB Conc 31.1 GM/DL (32-36); Mean Corpuscular Volume 90.1 FL (87-102); Mean Platelet Volume 8.7 FL (9.6-12.0); Monocytes % 9.6 % (1.7-12.7); Neutrophils % 73.5 % (38.7-73.9); Platelet Count 388 T/CUMM (130-400); Red Blood Count 3.64 MC/CUMM (3.8-5.5); Red Cell Distribution Width 16.5 % (9.3-17.3); White Blood Count 12.4 T/CUMM (4-12)
[2019-03-15] MEDS: FOLIC ACID 1 MG TABLET PO SCH (08:46)
[2019-03-15] MEDS: FLUoxetine 20 MG CAPSULE PO SCH (08:47)
[2019-03-15] MEDS: PREGABALIN 75 MG CAPSULE PO SCH (08:47)
[2019-03-15] MEDS: METOCLOPRAMIDE 10 MG TABLET PO SCH ×2 (08:47→12:44)
[2019-03-15] MEDS: PANTOPRAZOLE 40 MG TABLET PO SCH (08:48)
[2019-03-15] MEDS: ACYCLOVIR 200 MG CAPSULE PO SCH (09:10)
[2019-03-15] MEDS ORDERED: PNEUMOCOCCAL VACCINE (23 VALENT) 0.5 ML VIAL IM ONE (11:27)
[2019-03-15 11:28] VITALS: BP 91/51
[2019-03-15 12:56] LABS: Myeloperoxidase Antibody < 0.2 U
== END 2019-03-15 12:54 | disposition home health service (06) | DRG 329 ==
LOC: N.ED 12:47 → INTOOBSV 13:52 → N.EDINP 13:52 → N.3E 15:53
PROVIDERS: ADMIT Surgery; ATTEND Surgery

== ENCOUNTER 2020-07-02 06:03 | Inpatient (IN) ==
[2020-06-26 12:54] LABS: Basophils % 0.3 % (0.0-0.8); Eosinophils # 0.1 10*3/uL (0.0-0.87); Hematocrit 42.4 VOL% (35.7-47.0); Hemoglobin 13.7 GM/DL (12.0-16.0); Immature Granulocytes % 0.2 %; Immature Granulocytes Absolute 0.03 #; Lymphocytes # 2.6 10*3/uL (1.4-4.0); Lymphocytes % 20.9 % (21.3-54.2); Mean Corpuscular HGB Conc 32.3 GM/DL (32-36); Mean Platelet Volume 10.9 FL (9.6-12.0); Monocytes % 8.7 % (1.7-12.7); Neutrophils % 68.9 % (38.7-73.9); Platelet Count 354 T/CUMM (130-400); Red Blood Count 4.56 MC/CUMM (3.8-5.5); Red Cell Distribution Width 13.2 % (9.3-17.3); White Blood Count 12.2 T/CUMM (4-12)
[2020-06-26 13:27] LABS: Albumin 3.3 G/DL (3.4-5.0); Bilirubin,Total 0.8 MG/DL (0.2-1.0); Calcium 9.4 MG/DL (8.5-10.1); Osmolality,Calculated 277.4 MOS/KG (273-304); Potassium 4.3 MMOL/L (3.5-5.1); Total Protein 7.2 G/DL (6.4-8.3)
[2020-07-02] MEDS ORDERED: ONDANSETRON 4 MG/2 ML VIAL ONE (06:15)
[2020-07-02] MEDS ORDERED: LIDOCAINE 2% 5 ML VIAL ONE (06:15)
[2020-07-02] MEDS ORDERED: ROCURONIUM 50 MG/5 ML VIAL IV ONE (06:15)
[2020-07-02] MEDS ORDERED: propofoL 200 MG/20 ML VIAL IV ONE (06:15)
[2020-07-02] MEDS ORDERED: MIDAZOLAM 2 MG/2 ML VIAL ONE (06:15)
[2020-07-02] MEDS ORDERED: fentaNYL 100 MCG/2 ML VIAL ONE ×2 (06:16→08:40)
[2020-07-02] MEDS ORDERED: cefOXitin 1,000 MG in SYRINGE 1 EACH IV ONE (06:30)
[2020-07-02] MEDS ORDERED: GABAPENTIN 400 MG CAPSULE PO ONE (06:51)
[2020-07-02] MEDS ORDERED: ALBUTEROL 2.5 MG/3 ML NEB RESP TX ONE (06:51)
[2020-07-02] MEDS ORDERED: FAMOTIDINE 20 MG TABLET PO ONE (06:51)
[2020-07-02] MEDS ORDERED: DIAZEPAM 5 MG TABLET PO ONE (06:51)
[2020-07-02] MEDS ORDERED: ACETAMINOPHEN 500 MG TABLET PO ONE (06:51)
[2020-07-02] MEDS ORDERED: LACTATED RINGERS 1,000 ML IV SCH (07:00)
[2020-07-02] MEDS ORDERED: ROPIVACAINE 0.5% 30 ML VIAL ONE (08:06)
[2020-07-02] MEDS ORDERED: fentaNYL 2 MCG/ROPIV 0.2% EPID 100 ML EPIDURAL ONE (09:02)
[2020-07-02] MEDS ORDERED: PHENYLEPHRINE 10 MG/1 ML VIAL IV ONE (09:08)
[2020-07-02] MEDS ORDERED: ATROPINE 0.4 MG/1 ML VIAL ONE (11:09)
[2020-07-02] MEDS ORDERED: NEOSTIGMINE 10 MG/10 ML VIAL ONE ×6 (11:09→11:10)
[2020-07-02] MEDS ORDERED: SEVOFLURANE 1 UNIT/15 MINUTE INH ONE (11:38)
[2020-07-02] MEDS ORDERED: LACTATED RINGERS 2,000 ML IV ONE (11:38)
[2020-07-02] MEDS ORDERED: DEXAMETHASONE 4 MG/1 ML VIAL ONE (11:38)
[2020-07-02] MEDS: fentaNYL 2 MCG/ROPIV 0.2% EPID 100 ML EPIDURAL SCH (11:45)
[2020-07-02] MEDS ORDERED: HYDROmorphone 2 MG/1 ML VIAL IV PRN (11:50)
[2020-07-02] MEDS ORDERED: ONDANSETRON 4 MG/2 ML VIAL IV PRN (11:50)
[2020-07-02] MEDS ORDERED: MEPERIDINE 25 MG/1 ML VIAL IV PRN (11:50)
[2020-07-02] MEDS ORDERED: diphenhydrAMINE 50 MG/1 ML VIAL IV PRN (11:50)
[2020-07-02 11:54] LABS: Bilirubin,Urine Negative (Negative); Blood, Urine Negative (Negative); Glucose,Urine (UA) Negative (Negative); Ketones,Urine 5 mg/dL (Negative); Mucus,Urine Occasional /LPF (Occasional); Nitrite,Urine Negative (Negative); Protein,Urine Negative; RBC,Urine 1 /HPF (0-4); Squamous Epithelial Cell,Urine Occasional /HPF (0-10); Urine Appearance CLEAR (Clear); Urine Color Yellow (Yellow); Urine Specific Gravity 1.017 (1.001-1.035); Urine Urobilinogen < 2.0 EU/DL (0.2-1.0); WBC,Urine 1 /HPF (0-6)
[2020-07-02] MEDS ORDERED: ALBUTEROL/IPRATROPIUM 3 ML NEB RESP TX PRN (13:04)
[2020-07-02] MEDS: LACTATED RINGERS 1,000 ML IV SCH (15:00)
[2020-07-02] MEDS: cefOXitin 2,000 MG in SYRINGE 1 EACH IV SCH (17:35)
[2020-07-02] MEDS ORDERED: SODIUM CHLORIDE 0.9% 1,000 ML IV ONE (20:14)
[2020-07-03] MEDS: cefOXitin 2,000 MG in SYRINGE 1 EACH IV SCH ×2 (00:01→05:24)
[2020-07-03] MEDS: ACETAMINOPHEN 325 MG TABLET PO PRN ×2 (00:01→11:44)
[2020-07-03] MEDS: fentaNYL 2 MCG/ROPIV 0.2% EPID 100 ML EPIDURAL SCH ×3 (04:00→17:02)
[2020-07-03 06:14] LABS: Basophils % 0.3 % (0.0-0.8); Eosinophils % 0.2 % (0.00-10.9); Hematocrit 35.4 VOL% (35.7-47.0); Hemoglobin 11.5 GM/DL (12.0-16.0); Immature Granulocytes % 0.3 %; Immature Granulocytes Absolute 0.04 #; Lymphocytes # 1.9 10*3/uL (1.4-4.0); Lymphocytes % 14.5 % (21.3-54.2); Mean Corpuscular HGB Conc 32.5 GM/DL (32-36); Mean Corpuscular Volume 92.9 FL (87-102); Mean Platelet Volume 10.3 FL (9.6-12.0); Monocytes % 9.1 % (1.7-12.7); Neutrophils % 75.6 % (38.7-73.9); Platelet Count 261 T/CUMM (130-400); Red Blood Count 3.81 MC/CUMM (3.8-5.5); Red Cell Distribution Width 13.6 % (9.3-17.3); White Blood Count 12.8 T/CUMM (4-12)
[2020-07-03 06:24] LABS: Albumin 2.4 G/DL (3.4-5.0); Bilirubin,Total 0.6 MG/DL (0.2-1.0); Calcium 8.8 MG/DL (8.5-10.1); Osmolality,Calculated 283.8 MOS/KG (273-304); Potassium 4.3 MMOL/L (3.5-5.1); Total Protein 5.9 G/DL (6.4-8.3)
[2020-07-03] MEDS: PANTOPRAZOLE 40 MG VIAL IV SCH (09:26)
[2020-07-03] MEDS: LACTATED RINGERS 1,000 ML IV SCH ×2 (14:16)
[2020-07-04] MEDS: fentaNYL 2 MCG/ROPIV 0.2% EPID 100 ML EPIDURAL SCH (05:15)
[2020-07-04 05:33] LABS: Basophils % 0.3 % (0.0-0.8); Eosinophils % 0.3 % (0.00-10.9); Hematocrit 33.1 VOL% (35.7-47.0); Hemoglobin 10.5 GM/DL (12.0-16.0); Immature Granulocytes % 0.5 %; Immature Granulocytes Absolute 0.08 #; Lymphocytes # 2.1 10*3/uL (1.4-4.0); Lymphocytes % 14.2 % (21.3-54.2); Mean Corpuscular HGB Conc 31.7 GM/DL (32-36); Mean Corpuscular Volume 93.8 FL (87-102); Mean Platelet Volume 10.5 FL (9.6-12.0); Monocytes % 11.1 % (1.7-12.7); Neutrophils % 73.6 % (38.7-73.9); Platelet Count 278 T/CUMM (130-400); Red Blood Count 3.53 MC/CUMM (3.8-5.5); Red Cell Distribution Width 13.3 % (9.3-17.3); White Blood Count 14.7 T/CUMM (4-12)
[2020-07-04 06:01] LABS: Calcium 8.9 MG/DL (8.5-10.1); Osmolality,Calculated 273.5 MOS/KG (273-304); Potassium 4.8 MMOL/L (3.5-5.1)
[2020-07-04] MEDS: PANTOPRAZOLE 40 MG VIAL IV SCH (08:14)
[2020-07-04] MEDS ORDERED: HYDROmorphone 2 MG/1 ML VIAL IV ONE (09:37)
[2020-07-04] MEDS ORDERED: NALOXONE 0.4 MG/ML VIAL IV PRN (11:00)
[2020-07-04] MEDS: HYDROmorphone PCA 30 MG/30 ML SYRINGE IV SCH (12:11)
[2020-07-04] MEDS: KETOROLAC 30 MG/1 ML VIAL IV SCH ×3 (12:52→23:47)
[2020-07-04] MEDS: DEXT 5% NACL 0.45% KCL 40 MEQ 40 MEQ/1,000 ML BAG IV SCH ×2 (12:53→23:56)
[2020-07-04] MEDS: LACTATED RINGERS 1,000 ML IV SCH (17:11)
[2020-07-04] MEDS: ONDANSETRON 4 MG/2 ML VIAL IV PRN (21:04)
[2020-07-05] MEDS: ONDANSETRON 4 MG/2 ML VIAL IV PRN ×4 (01:03→21:17)
[2020-07-05] MEDS: DEXT 5% NACL 0.45% KCL 40 MEQ 40 MEQ/1,000 ML BAG IV SCH ×3 (05:06→21:10)
[2020-07-05] MEDS: KETOROLAC 30 MG/1 ML VIAL IV SCH ×4 (05:47→23:04)
[2020-07-05 06:08] LABS: Basophils % 0.4 % (0.0-0.8); Eosinophils # 0.5 10*3/uL (0.0-0.87); Eosinophils % 4.7 % (0.00-10.9); Hematocrit 32.8 VOL% (35.7-47.0); Hemoglobin 10.4 GM/DL (12.0-16.0); Immature Granulocytes % 0.4 %; Immature Granulocytes Absolute 0.04 #; Lymphocytes # 2.6 10*3/uL (1.4-4.0); Mean Corpuscular HGB Conc 31.7 GM/DL (32-36); Mean Corpuscular Volume 94.5 FL (87-102); Mean Platelet Volume 10.7 FL (9.6-12.0); Monocytes % 10.1 % (1.7-12.7); Neutrophils % 60.4 % (38.7-73.9); Platelet Count 283 T/CUMM (130-400); Red Blood Count 3.47 MC/CUMM (3.8-5.5); Red Cell Distribution Width 13.2 % (9.3-17.3); White Blood Count 10.8 T/CUMM (4-12)
[2020-07-05 06:26] LABS: Calcium 8.9 MG/DL (8.5-10.1); Osmolality,Calculated 279.1 MOS/KG (273-304); Potassium 4.2 MMOL/L (3.5-5.1)
[2020-07-05] MEDS: PANTOPRAZOLE 40 MG VIAL IV SCH (08:24)
[2020-07-05] MEDS: HYDROmorphone PCA 30 MG/30 ML SYRINGE IV SCH (10:47)
[2020-07-05] MEDS: ENOXAPARIN 40 MG/0.4 ML SYRINGE SUBCUT SCH (10:49)
[2020-07-06] MEDS: DEXT 5% NACL 0.45% KCL 40 MEQ 40 MEQ/1,000 ML BAG IV SCH (00:20)
[2020-07-06] MEDS: ONDANSETRON 4 MG/2 ML VIAL IV PRN (03:51)
[2020-07-06] MEDS: KETOROLAC 30 MG/1 ML VIAL IV SCH ×4 (04:58→22:40)
[2020-07-06] MEDS: HYDROmorphone PCA 30 MG/30 ML SYRINGE IV SCH ×2 (08:39→10:44)
[2020-07-06] MEDS: ENOXAPARIN 40 MG/0.4 ML SYRINGE SUBCUT SCH (10:31)
[2020-07-06] MEDS: PANTOPRAZOLE 40 MG VIAL IV SCH (10:44)
[2020-07-06] MEDS: PREGABALIN 100 MG CAPSULE PO SCH ×2 (14:03→21:16)
[2020-07-06] MEDS: AMITRIPTYLINE 25 MG TABLET PO SCH (21:16)
[2020-07-07] MEDS: KETOROLAC 30 MG/1 ML VIAL IV SCH ×5 (04:00→22:00)
[2020-07-07] MEDS: PANTOPRAZOLE 40 MG TABLET PO SCH (10:06)
[2020-07-07] MEDS: ENOXAPARIN 40 MG/0.4 ML SYRINGE SUBCUT SCH (10:07)
[2020-07-07] MEDS: PREGABALIN 100 MG CAPSULE PO SCH ×3 (10:07→20:37)
[2020-07-07] MEDS: ONDANSETRON 4 MG/2 ML VIAL IV PRN ×2 (14:36→19:18)
[2020-07-07] MEDS: HYDROmorphone 2 MG/1 ML VIAL IV PRN ×3 (14:39→22:59)
[2020-07-07] MEDS: AMITRIPTYLINE 25 MG TABLET PO SCH (20:37)
[2020-07-08] MEDS: KETOROLAC 30 MG/1 ML VIAL IV SCH ×4 (05:14→22:15)
[2020-07-08] MEDS ORDERED: BISACODYL 10 MG SUPP RECTAL ONE (08:00)
[2020-07-08] MEDS: DOCUSATE SODIUM 100 MG CAPSULE PO SCH (08:13)
[2020-07-08] MEDS: PANTOPRAZOLE 40 MG TABLET PO SCH (08:14)
[2020-07-08] MEDS: PREGABALIN 100 MG CAPSULE PO SCH ×3 (08:14→20:21)
[2020-07-08] MEDS: HYDROmorphone 2 MG/1 ML VIAL IV PRN ×3 (09:47→20:27)
[2020-07-08] MEDS: ENOXAPARIN 40 MG/0.4 ML SYRINGE SUBCUT SCH (11:42)
[2020-07-08] MEDS: ONDANSETRON 4 MG/2 ML VIAL IV PRN (15:35)
[2020-07-08] MEDS: AMITRIPTYLINE 25 MG TABLET PO SCH (20:21)
[2020-07-09] MEDS: KETOROLAC 30 MG/1 ML VIAL IV SCH (04:11)
[2020-07-09 08:08] VITALS: BP 107/59
[2020-07-09] MEDS: PREGABALIN 100 MG CAPSULE PO SCH (08:26)
[2020-07-09] MEDS: DOCUSATE SODIUM 100 MG CAPSULE PO SCH (08:26)
[2020-07-09] MEDS: PANTOPRAZOLE 40 MG TABLET PO SCH (08:26)
[2020-07-09] MEDS: HYDROmorphone 2 MG/1 ML VIAL IV PRN (09:49)
[2020-07-09] MEDS: ENOXAPARIN 40 MG/0.4 ML SYRINGE SUBCUT SCH (12:19)
[2020-07-09] MEDS: ONDANSETRON 4 MG/2 ML VIAL IV PRN (12:19)
== END 2020-07-09 14:03 | disposition home health service (06) | DRG 330 ==
LOC: N.OR 06:03 → N.SDSINP 06:05 → N.3E 12:52
PROVIDERS: ADMIT Surgery; ATTEND Surgery

== ENCOUNTER 2020-07-27 09:31 | Observation (INO) ==
[2020-07-27] MEDS ORDERED: LACTATED RINGERS 1,000 ML IV ONE (11:15)
[2020-07-27 11:51] LABS: Basophils % 0.3 % (0.0-0.8); Eosinophils # 0.3 10*3/uL (0.0-0.87); Hematocrit 34.1 VOL% (35.7-47.0); Hemoglobin 10.6 GM/DL (12.0-16.0); Immature Granulocytes % 0.6 %; Immature Granulocytes Absolute 0.07 #; Lymphocytes # 1.6 10*3/uL (1.4-4.0); Lymphocytes % 12.5 % (21.3-54.2); Mean Corpuscular HGB Conc 31.1 GM/DL (32-36); Mean Corpuscular Volume 92.2 FL (87-102); Mean Platelet Volume 9.1 FL (9.6-12.0); Monocytes % 8.2 % (1.7-12.7); Neutrophils % 76.4 % (38.7-73.9); Platelet Count 416 T/CUMM (130-400); Red Cell Distribution Width 13.9 % (9.3-17.3); White Blood Count 12.6 T/CUMM (4-12)
[2020-07-27 12:05] LABS: Calcium 8.5 MG/DL (8.5-10.1); Osmolality,Calculated 269.1 MOS/KG (273-304)
[2020-07-27] MEDS: PROMETHAZINE 25 MG/1 ML VIAL IM PRN (12:28)
[2020-07-27] MEDS ORDERED: METOCLOPRAMIDE 10 MG/10 ML UDCUP PO SCH (13:40)
[2020-07-27] MEDS: MORPHINE 4 MG/1 ML VIAL IV PRN ×3 (14:08→22:20)
[2020-07-27] MEDS: PREGABALIN 100 MG CAPSULE PO SCH ×2 (14:29→20:21)
[2020-07-27] MEDS: oxyCODONE/ACETAMINOPHEN 5-325 MG TABLET PO SCH ×2 (14:30→20:22)
[2020-07-27] MEDS: METOCLOPRAMIDE 10 MG/10 ML UDCUP PO SCH ×2 (14:30→20:21)
[2020-07-27] MEDS: LACTATED RINGERS 1,000 ML IV SCH ×2 (14:32→22:22)
[2020-07-27] MEDS: ONDANSETRON 4 MG/2 ML VIAL IV PRN (17:14)
[2020-07-28] MEDS: LACTATED RINGERS 1,000 ML IV SCH ×3 (06:03→16:32)
[2020-07-28] MEDS: ONDANSETRON 4 MG/2 ML VIAL IV PRN ×2 (06:03→16:53)
[2020-07-28] MEDS: MORPHINE 4 MG/1 ML VIAL IV PRN ×3 (06:03→16:53)
[2020-07-28] MEDS: METOCLOPRAMIDE 10 MG/10 ML UDCUP PO SCH (06:59)
[2020-07-28] MEDS: tiZANidine 4 MG TABLET PO SCH (08:55)
[2020-07-28] MEDS: oxyCODONE/ACETAMINOPHEN 5-325 MG TABLET PO SCH ×3 (08:55→20:27)
[2020-07-28] MEDS: PREGABALIN 100 MG CAPSULE PO SCH ×3 (08:55→20:26)
[2020-07-28] MEDS: PROMETHAZINE 25 MG/1 ML VIAL IM PRN (08:56)
[2020-07-28 10:22] LABS: Alanine Aminotransferase < 9 U/L (13-56); Albumin 1.6 G/DL (3.4-5.0); Alkaline Phosphatase 140 U/L (45-117); Aspartate Amino Transferase 12 U/L (0-37); Bilirubin,Indirect 0.3 MG/DL (0.0-1.0); Bilirubin,Total < 0.39 MG/DL (0.2-1.0); Total Protein 4.8 G/DL (6.4-8.2)
[2020-07-28] MEDS: METOCLOPRAMIDE 10 MG/2 ML VIAL IV SCH ×2 (12:35→18:18)
[2020-07-28] MEDS ORDERED: MORPHINE 4 MG/1 ML VIAL IV PRN (15:30)
[2020-07-28] MEDS: PANTOPRAZOLE 40 MG VIAL IV SCH (20:26)
[2020-07-29] MEDS: METOCLOPRAMIDE 10 MG/2 ML VIAL IV SCH ×2 (00:36→06:08)
[2020-07-29] MEDS: LACTATED RINGERS 1,000 ML IV SCH ×3 (00:37→20:53)
[2020-07-29] MEDS: MORPHINE 4 MG/1 ML VIAL IV PRN ×3 (00:37→08:45)
[2020-07-29 05:51] LABS: Basophils # 0.1 10*3/uL (0.0-0.2); Basophils % 0.5 % (0.0-0.8); Eosinophils # 0.6 10*3/uL (0.0-0.87); Eosinophils % 5.5 % (0.00-10.9); Hematocrit 30.8 VOL% (35.7-47.0); Hemoglobin 9.4 GM/DL (12.0-16.0); Immature Granulocytes % 0.6 %; Immature Granulocytes Absolute 0.06 #; Lymphocytes # 2.6 10*3/uL (1.4-4.0); Lymphocytes % 26.1 % (21.3-54.2); Mean Corpuscular HGB Conc 30.5 GM/DL (32-36); Mean Corpuscular Volume 93.9 FL (87-102); Monocytes % 10.2 % (1.7-12.7); Neutrophils % 57.1 % (38.7-73.9); Platelet Count 370 T/CUMM (130-400); Red Blood Count 3.28 MC/CUMM (3.8-5.5); Red Cell Distribution Width 13.6 % (9.3-17.3)
[2020-07-29 06:17] LABS: Hypochromasia 1+; Microcytosis 1+; Platelet Estimate Adequate
[2020-07-29] MEDS: ONDANSETRON 4 MG/2 ML VIAL IV PRN ×2 (08:41→20:52)
[2020-07-29] MEDS: oxyCODONE/ACETAMINOPHEN 5-325 MG TABLET PO SCH ×3 (09:48→20:52)
[2020-07-29] MEDS: tiZANidine 4 MG TABLET PO SCH (09:48)
[2020-07-29] MEDS: PREGABALIN 100 MG CAPSULE PO SCH ×3 (09:48→20:53)
[2020-07-29] MEDS: PANTOPRAZOLE 40 MG VIAL IV SCH ×2 (09:49→20:53)
[2020-07-29] MEDS: oxyCODONE/ACETAMINOPHEN 5-325 MG TABLET PO PRN (12:51)
[2020-07-29] MEDS: METOCLOPRAMIDE 10 MG/10 ML UDCUP PO SCH ×3 (12:51→20:52)
[2020-07-29] MEDS: CIPROFLOXACIN 500 MG TABLET PO SCH (16:39)
[2020-07-29 18:06] LABS: Bilirubin,Urine Negative (Negative); Blood, Urine Negative (Negative); Glucose,Urine (UA) Negative (Negative); Ketones,Urine Negative (Negative); Mucus,Urine Occasional /LPF (Occasional); Nitrite,Urine Negative (Negative); Protein,Urine Negative; RBC,Urine 2 /HPF (0-4); Squamous Epithelial Cell,Urine Occasional /HPF (0-10); Urine Appearance CLEAR (Clear); Urine Color Yellow (Yellow); Urine Specific Gravity 1.009 (1.001-1.035); WBC,Urine 8 /HPF (0-6)
[2020-07-30] MEDS: LACTATED RINGERS 1,000 ML IV SCH ×2 (03:51→14:04)
[2020-07-30] MEDS: MORPHINE 4 MG/1 ML VIAL IV PRN ×3 (05:26→17:28)
[2020-07-30 09:39] LABS: Basophils % 0.3 % (0.0-0.8); Eosinophils # 0.5 10*3/uL (0.0-0.87); Eosinophils % 5.6 % (0.00-10.9); Hematocrit 33.5 VOL% (35.7-47.0); Hemoglobin 10.3 GM/DL (12.0-16.0); Immature Granulocytes Absolute 0.09 #; Lymphocytes # 1.6 10*3/uL (1.4-4.0); Lymphocytes % 16.8 % (21.3-54.2); Mean Corpuscular HGB Conc 30.7 GM/DL (32-36); Mean Corpuscular Volume 92.8 FL (87-102); Mean Platelet Volume 9.1 FL (9.6-12.0); Monocytes % 7.2 % (1.7-12.7); Neutrophils % 69.1 % (38.7-73.9); Platelet Count 423 T/CUMM (130-400); Red Blood Count 3.61 MC/CUMM (3.8-5.5); Red Cell Distribution Width 13.8 % (9.3-17.3); White Blood Count 9.4 T/CUMM (4-12)
[2020-07-30] MEDS: oxyCODONE/ACETAMINOPHEN 5-325 MG TABLET PO SCH ×3 (09:39→20:15)
[2020-07-30] MEDS: ONDANSETRON 4 MG/2 ML VIAL IV PRN ×2 (09:41→20:17)
[2020-07-30] MEDS: PANTOPRAZOLE 40 MG TABLET PO SCH ×2 (09:50→17:03)
[2020-07-30] MEDS: METOCLOPRAMIDE 10 MG/10 ML UDCUP PO SCH ×4 (09:50→20:14)
[2020-07-30] MEDS: CIPROFLOXACIN 500 MG TABLET PO SCH ×2 (09:50→17:03)
[2020-07-30] MEDS: PREGABALIN 100 MG CAPSULE PO SCH ×3 (09:50→20:15)
[2020-07-30] MEDS: PROMETHAZINE 25 MG/1 ML VIAL IM PRN (12:13)
[2020-07-31 05:20] LABS: Basophils % 0.3 % (0.0-0.8); Eosinophils # 0.8 10*3/uL (0.0-0.87); Eosinophils % 11.7 % (0.00-10.9); Hematocrit 30.8 VOL% (35.7-47.0); Immature Granulocytes % 0.6 %; Immature Granulocytes Absolute 0.04 #; Lymphocytes # 2.3 10*3/uL (1.4-4.0); Lymphocytes % 32.6 % (21.3-54.2); Mean Corpuscular HGB Conc 32.5 GM/DL (32-36); Mean Corpuscular Volume 90.3 FL (87-102); Mean Platelet Volume 9.2 FL (9.6-12.0); Monocytes % 7.5 % (1.7-12.7); Neutrophils % 47.3 % (38.7-73.9); Platelet Count 343 T/CUMM (130-400); Red Blood Count 3.41 MC/CUMM (3.8-5.5); Red Cell Distribution Width 14.1 % (9.3-17.3); White Blood Count 6.9 T/CUMM (4-12)
[2020-07-31] MEDS: MORPHINE 4 MG/1 ML VIAL IV PRN ×5 (05:30→19:45)
[2020-07-31] MEDS: ONDANSETRON 4 MG/2 ML VIAL IV PRN ×2 (05:31→19:44)
[2020-07-31] MEDS: LACTATED RINGERS 1,000 ML IV SCH ×3 (05:32→22:57)
[2020-07-31 05:55] LABS: Band Neutrophils 1 % (0-10); Eosinophils 10 % (0-10); Lymphocytes 33 % (20-55); Segmented Neutrophils 47 % (50-85); Total Cells Counted 100
[2020-07-31 05:56] LABS: Hypochromasia 1+; Microcytosis 1+
[2020-07-31] MEDS: PANTOPRAZOLE 40 MG TABLET PO SCH ×2 (08:47→17:48)
[2020-07-31] MEDS: CIPROFLOXACIN 500 MG TABLET PO SCH ×2 (08:47→17:48)
[2020-07-31] MEDS: METOCLOPRAMIDE 10 MG/10 ML UDCUP PO SCH ×4 (08:47→21:23)
[2020-07-31] MEDS: oxyCODONE/ACETAMINOPHEN 5-325 MG TABLET PO SCH ×3 (08:48→21:24)
[2020-07-31] MEDS: PREGABALIN 100 MG CAPSULE PO SCH ×3 (08:48→21:24)
[2020-07-31] MEDS: PROMETHAZINE 25 MG TABLET PO PRN ×3 (10:00→18:32)
[2020-07-31] MEDS: oxyCODONE/ACETAMINOPHEN 5-325 MG TABLET PO PRN (11:49)
[2020-08-01] MEDS: MORPHINE 4 MG/1 ML VIAL IV PRN ×2 (00:56→07:06)
[2020-08-01] MEDS: ONDANSETRON 4 MG/2 ML VIAL IV PRN (01:41)
[2020-08-01] MEDS: PROMETHAZINE 25 MG TABLET PO PRN ×2 (03:15→07:04)
[2020-08-01] MEDS: oxyCODONE/ACETAMINOPHEN 5-325 MG TABLET PO PRN (03:15)
[2020-08-01] MEDS: LACTATED RINGERS 1,000 ML IV SCH (07:04)
[2020-08-01 09:07] LABS: Basophils % 0.5 % (0.0-0.8); Eosinophils # 0.5 10*3/uL (0.0-0.87); Eosinophils % 9.5 % (0.00-10.9); Hematocrit 33.9 VOL% (35.7-47.0); Hemoglobin 10.5 GM/DL (12.0-16.0); Immature Granulocytes % 1.3 %; Immature Granulocytes Absolute 0.07 #; Lymphocytes # 2.7 10*3/uL (1.4-4.0); Lymphocytes % 49.7 % (21.3-54.2); Mean Corpuscular Volume 91.6 FL (87-102); Mean Platelet Volume 9.1 FL (9.6-12.0); Monocytes % 8.2 % (1.7-12.7); Neutrophils % 30.8 % (38.7-73.9); Platelet Count 385 T/CUMM (130-400); Red Cell Distribution Width 14.2 % (9.3-17.3); White Blood Count 5.5 T/CUMM (4-12)
[2020-08-01] MEDS: oxyCODONE/ACETAMINOPHEN 5-325 MG TABLET PO SCH (09:56)
[2020-08-01] MEDS: PANTOPRAZOLE 40 MG TABLET PO SCH (09:57)
[2020-08-01] MEDS: METOCLOPRAMIDE 10 MG/10 ML UDCUP PO SCH ×2 (09:57→11:16)
[2020-08-01] MEDS: PREGABALIN 100 MG CAPSULE PO SCH (09:58)
[2020-08-01] MEDS: CIPROFLOXACIN 500 MG TABLET PO SCH (09:58)
[2020-08-01 10:12] LABS: Atypical Lymphocytes Few; Band Neutrophils 1 % (0-10); Eosinophils 7 % (0-10); Lymphocytes 49 % (20-55); Metamyelocytes 1 %; Reactive Lymphocytes Few; Segmented Neutrophils 33 % (50-85); Total Cells Counted 100
[2020-08-01 10:13] LABS: Platelet Estimate Normal
[2020-08-01 11:47] VITALS: BP 122/73
== END 2020-08-01 13:00 | disposition home health service (06) ==
LOC: N.3E
PROVIDERS: ADMIT Surgery; ATTEND Surgery

== ENCOUNTER 2021-02-01 01:41 | Inpatient (IN) ==
[2021-02-01] MEDS ORDERED: ONDANSETRON 4 MG/2 ML VIAL IV STA (02:06)
[2021-02-01] MEDS ORDERED: methylPREDNISolone SOD SUC 125 MG/2 ML VIAL IV STA (02:06)
[2021-02-01] MEDS ORDERED: SODIUM CHLORIDE 0.9% 1,000 ML IV STA ×2 (02:06→03:06)
[2021-02-01] MEDS ORDERED: PIPERACILLIN/TAZOBACTAM 3,375 MG in SODIUM CHLORIDE 0.9% 100 ML IV STA (02:06)
[2021-02-01] MEDS: ALBUTEROL NEB SOLN 5 MG/ML 20 ML/BOTTLE CONT NEB SCH ×2 (02:28→05:25)
[2021-02-01 02:50] LABS: ABG Base Excess -7.2 MMOL/L (-2.5-2.5); ABG HCO3 18.4 MMOL/L (20-26); ABG Oxygen Saturation 84.7 % (95-100); ABG PCO2 40.7 MM HG (35-48); ABG PH 7.284 (7.35-7.45)
[2021-02-01] MEDS ORDERED: METOCLOPRAMIDE 10 MG/2 ML VIAL IV STA (03:00)
[2021-02-01] MEDS ORDERED: METOCLOPRAMIDE 10 MG/2 ML VIAL ONE (03:00)
[2021-02-01 03:01] LABS: Albumin 2.7 G/DL (3.4-5.0); Bilirubin,Total 0.5 MG/DL (0.20-1.00); Calcium 8.8 MG/DL (8.5-10.1); Osmolality,Calculated 286.8 MOS/KG (273-304); Potassium 3.5 MMOL/L (3.5-5.1); Total Protein 6.1 G/DL (6.4-8.2)
[2021-02-01] MEDS ORDERED: MAGNESIUM SULF RIDER 2 GM/50 ML PREMIX IV STA (03:05)
[2021-02-01] MEDS ORDERED: KETOROLAC 30 MG/1 ML VIAL IV STA (03:13)
[2021-02-01] MEDS ORDERED: NOREPINEPHRINE 8 MG in SODIUM CHLORIDE 0.9% 242 ML IV PRN (03:14)
[2021-02-01] MEDS ORDERED: NOREPINEPHRINE 4 MG/4 ML VIAL IV ONE (03:14)
[2021-02-01] MEDS ORDERED: ENOXAPARIN 100 MG/ML SYRINGE SUBCUT STA (03:21)
[2021-02-01 03:51] LABS: Basophils % 0.7 % (0.0-0.8); Eosinophils % 0.7 % (0.00-10.9); Hematocrit 47.5 VOL% (35.7-47.0); Immature Granulocytes % 0.3 %; Immature Granulocytes Absolute 0.01 #; Lymphocytes # 1.6 10*3/uL (1.4-4.0); Lymphocytes % 54.8 % (21.3-54.2); Mean Corpuscular HGB Conc 30.3 GM/DL (32-36); Mean Corpuscular Volume 96.7 FL (87-102); Mean Platelet Volume 10.5 FL (9.6-12.0); Monocytes % 2.7 % (1.7-12.7); Neutrophils % 40.8 % (38.7-73.9); Platelet Count 233 T/CUMM (130-400); Red Blood Count 4.91 MC/CUMM (3.8-5.5); Red Cell Distribution Width 17.6 % (9.3-17.3); White Blood Count 2.9 T/CUMM (4-12)
[2021-02-01 03:54] LABS: Hemoglobin 14.4 GM/DL (12.0-16.0)
[2021-02-01 04:27] LABS: Bacteria,Urine Occasional /HPF (Few); Bilirubin,Urine Negative (Negative); Blood, Urine Negative (Negative); Glucose,Urine (UA) Negative (Negative); Ketones,Urine Negative (Negative); Mucus,Urine Occasional /LPF (Occasional); Nitrite,Urine Negative (Negative); Protein,Urine Negative; RBC,Urine 1 /HPF (0-4); Squamous Epithelial Cell,Urine Occasional /HPF (0-10); Urine Appearance CLEAR (Clear); Urine Color Yellow (Yellow); Urine Specific Gravity 1.009 (1.001-1.035); Urine Urobilinogen < 2.0 EU/DL (0.2-1.0)
[2021-02-01] MEDS ORDERED: ALBUTEROL 2.5 MG/3 ML NEB RESP TX PRN (05:24)
[2021-02-01] MEDS ORDERED: ONDANSETRON 4 MG/2 ML VIAL IV PRN (05:24)
[2021-02-01] MEDS ORDERED: DOCUSATE SODIUM 100 MG CAPSULE PO PRN (05:24)
[2021-02-01] MEDS ORDERED: POTASSIUM CHLORIDE 20 MEQ TABLET PO PRN (05:36)
[2021-02-01] MEDS ORDERED: MAGNESIUM SULF RIDER 4 GM/100 ML PREMIX IV PRN (05:36)
[2021-02-01] MEDS ORDERED: MAGNESIUM SULF RIDER 2 GM/50 ML PREMIX IV PRN (05:36)
[2021-02-01] MEDS ORDERED: INFLUENZA VIRUS VACCINE 0.5 ML SYRINGE IM ONE (06:17)
[2021-02-01] MEDS: SODIUM CHLORIDE 0.9% 1,000 ML IV SCH ×2 (06:24→14:43)
[2021-02-01] MEDS: ALBUTEROL/IPRATROPIUM 3 ML NEB RESP TX SCH ×3 (06:58→20:51)
[2021-02-01] MEDS: PIPERACILLIN/TAZOBACTAM 3,375 MG in SODIUM CHLORIDE 0.9% 100 ML IV SCH ×2 (10:43→17:55)
[2021-02-01] MEDS: methylPREDNISolone SOD SUC 40 MG/1 ML VIAL IV SCH ×2 (10:43→17:55)
[2021-02-01] MEDS: PREGABALIN 100 MG CAPSULE PO SCH ×2 (15:49→20:48)
[2021-02-01] MEDS: tiZANidine 4 MG TABLET PO SCH (15:50)
[2021-02-01] MEDS ORDERED: PREGABALIN 100 MG CAPSULE PO SCH (21:00)
[2021-02-02] MEDS: ALBUTEROL/IPRATROPIUM 3 ML NEB RESP TX SCH ×4 (01:23→19:55)
[2021-02-02] MEDS: ACETAMINOPHEN 325 MG TABLET PO PRN ×2 (01:43→06:11)
[2021-02-02] MEDS: PIPERACILLIN/TAZOBACTAM 3,375 MG in SODIUM CHLORIDE 0.9% 100 ML IV SCH ×3 (01:44→16:54)
[2021-02-02] MEDS: methylPREDNISolone SOD SUC 40 MG/1 ML VIAL IV SCH ×3 (01:44→16:54)
[2021-02-02] MEDS: SODIUM CHLORIDE 0.9% 1,000 ML IV SCH ×2 (01:44→13:25)
[2021-02-02] MEDS ORDERED: ENOXAPARIN 40 MG/0.4 ML SYRINGE SUBCUT SCH (03:00)
[2021-02-02 07:45] LABS: Albumin 1.9 G/DL (3.4-5.0); Bilirubin,Total 0.5 MG/DL (0.20-1.00); Calcium 8.2 MG/DL (8.5-10.1); Potassium 4.8 MMOL/L (3.5-5.1); Total Protein 5.3 G/DL (6.4-8.2)
[2021-02-02] MEDS: tiZANidine 4 MG TABLET PO SCH (09:31)
[2021-02-02] MEDS: PREGABALIN 100 MG CAPSULE PO SCH ×3 (09:31→20:34)
[2021-02-02] MEDS: ENOXAPARIN 40 MG/0.4 ML SYRINGE SUBCUT SCH (09:31)
[2021-02-02 10:40] LABS: Basophils % 0.2 % (0.0-0.8); Eosinophils % 0.1 % (0.00-10.9); Hematocrit 31.3 VOL% (35.7-47.0); Immature Granulocytes % 8.5 %; Immature Granulocytes Absolute 1.07 #; Lymphocytes # 0.7 10*3/uL (1.4-4.0); Lymphocytes % 5.5 % (21.3-54.2); Mean Corpuscular Volume 92.6 FL (87-102); Mean Platelet Volume 11.9 FL (9.6-12.0); Monocytes % 4.5 % (1.7-12.7); Neutrophils % 81.2 % (38.7-73.9); Red Cell Distribution Width 18.3 % (9.3-17.3)
[2021-02-02 10:44] LABS: Red Blood Count 3.38 MC/CUMM (3.8-5.5); White Blood Count 12.6 T/CUMM (4-12)
[2021-02-02 10:45] LABS: Hemoglobin 9.7 GM/DL (12.0-16.0); Platelet Count 101 T/CUMM (130-400)
[2021-02-02 11:13] LABS: Band Neutrophils 8 % (0-10); Hypochromasia 1+; Lymphocytes 9 % (20-55); Microcytosis 1+; Platelet Estimate Decreased; Segmented Neutrophils 79 % (50-85); Total Cells Counted 100
[2021-02-02] MEDS ORDERED: tiZANidine 4 MG TABLET PO SCH (15:05)
[2021-02-03] MEDS: methylPREDNISolone SOD SUC 40 MG/1 ML VIAL IV SCH ×2 (00:54→08:49)
[2021-02-03] MEDS: PIPERACILLIN/TAZOBACTAM 3,375 MG in SODIUM CHLORIDE 0.9% 100 ML IV SCH ×3 (00:54→16:37)
[2021-02-03] MEDS: SODIUM CHLORIDE 0.9% 1,000 ML IV SCH (01:36)
[2021-02-03] MEDS: ALBUTEROL/IPRATROPIUM 3 ML NEB RESP TX SCH ×4 (01:37→19:36)
[2021-02-03 05:58] LABS: Basophils % 0.3 % (0.0-0.8); Hematocrit 30.5 VOL% (35.7-47.0); Hemoglobin 9.5 GM/DL (12.0-16.0); Immature Granulocytes % 18.2 %; Immature Granulocytes Absolute 2.54 #; Lymphocytes # 0.6 10*3/uL (1.4-4.0); Lymphocytes % 4.1 % (21.3-54.2); Mean Corpuscular HGB Conc 31.1 GM/DL (32-36); Mean Corpuscular Volume 94.1 FL (87-102); Mean Platelet Volume 12.5 FL (9.6-12.0); Monocytes % 2.8 % (1.7-12.7); Neutrophils % 74.6 % (38.7-73.9); Platelet Count 100 T/CUMM (130-400); Red Blood Count 3.24 MC/CUMM (3.8-5.5); Red Cell Distribution Width 18.5 % (9.3-17.3); White Blood Count 13.9 T/CUMM (4-12)
[2021-02-03 06:21] LABS: Band Neutrophils 4 % (0-10); Hypochromasia Slight; Lymphocytes 1 % (20-55); Microcytosis Slight; Platelet Estimate Decreased; Segmented Neutrophils 88 % (50-85); Total Cells Counted 100
[2021-02-03 07:11] LABS: Albumin 1.8 G/DL (3.4-5.0); Bilirubin,Total 0.7 MG/DL (0.20-1.00); Calcium 8.3 MG/DL (8.5-10.1); Osmolality,Calculated 289.8 MOS/KG (273-304); Potassium 3.7 MMOL/L (3.5-5.1); Total Protein 4.9 G/DL (6.4-8.2)
[2021-02-03] MEDS: PREGABALIN 100 MG CAPSULE PO SCH ×3 (08:49→21:20)
[2021-02-03] MEDS: ENOXAPARIN 40 MG/0.4 ML SYRINGE SUBCUT SCH (08:50)
[2021-02-03] MEDS: tiZANidine 4 MG TABLET PO SCH (09:00)
[2021-02-03] MEDS ORDERED: BENZONATATE 100 MG CAPSULE PO PRN (13:30)
[2021-02-04] MEDS: ALBUTEROL/IPRATROPIUM 3 ML NEB RESP TX SCH ×3 (00:22→07:05)
[2021-02-04] MEDS: PIPERACILLIN/TAZOBACTAM 3,375 MG in SODIUM CHLORIDE 0.9% 100 ML IV SCH ×2 (02:35→08:34)
[2021-02-04 06:45] LABS: Basophils % 0.2 % (0.0-0.8); Eosinophils % 0.1 % (0.00-10.9); Hematocrit 29.5 VOL% (35.7-47.0); Hemoglobin 9.4 GM/DL (12.0-16.0); Lymphocytes # 1.9 10*3/uL (1.4-4.0); Lymphocytes % 9.5 % (21.3-54.2); Mean Corpuscular HGB Conc 31.9 GM/DL (32-36); Mean Corpuscular Volume 92.8 FL (87-102); Mean Platelet Volume 11.8 FL (9.6-12.0); Monocytes % 4.5 % (1.7-12.7); Neutrophils % 84.7 % (38.7-73.9); Platelet Count 115 T/CUMM (130-400); Red Blood Count 3.18 MC/CUMM (3.8-5.5); Red Cell Distribution Width 18.5 % (9.3-17.3); White Blood Count 19.9 T/CUMM (4-12)
[2021-02-04 07:07] LABS: Bilirubin,Total 0.5 MG/DL (0.20-1.00); Calcium 8.6 MG/DL (8.5-10.1); Osmolality,Calculated 287.6 MOS/KG (273-304); Potassium 3.9 MMOL/L (3.5-5.1); Total Protein 5.2 G/DL (6.4-8.2)
[2021-02-04 07:12] LABS: Band Neutrophils 2 % (0-10); Lymphocytes 7 % (20-55); Segmented Neutrophils 89 % (50-85); Total Cells Counted 100
[2021-02-04 07:13] LABS: Hypochromasia Slight; Microcytosis 1+; Platelet Estimate Decreased
[2021-02-04 08:21] VITALS: BP 126/85
[2021-02-04] MEDS: tiZANidine 4 MG TABLET PO SCH (08:34)
[2021-02-04] MEDS: ENOXAPARIN 40 MG/0.4 ML SYRINGE SUBCUT SCH (08:34)
[2021-02-04] MEDS: PREGABALIN 100 MG CAPSULE PO SCH (08:34)
[2021-02-04] MEDS ORDERED: predniSONE 20 MG TABLET PO SCH (09:00)
== END 2021-02-04 10:50 | disposition home or self-care (01) | DRG 871 ==
LOC: EDUNIT# → EDBD → N.ED 01:41 → N.EDINP 04:39 → SUATTDRO 04:39 → N.CC 05:50 → N.5E 18:11
PROVIDERS: ADMIT Internal Medicine; ATTEND Internal Medicine

== ENCOUNTER 2021-05-15 15:44 | Inpatient (IN) ==
[2021-05-15] MEDS ORDERED: ACETAMINOPHEN 325 MG TABLET PO PRN (19:25)
[2021-05-15] MEDS ORDERED: SODIUM CHLORIDE 0.9% 1,000 ML IV STA (19:25)
[2021-05-15] MEDS ORDERED: ONDANSETRON 4 MG/2 ML VIAL IV STA (19:26)
[2021-05-15] MEDS ORDERED: FAMOTIDINE 20 MG/2 ML VIAL IV STA (19:26)
[2021-05-15 19:33] LABS: Basophils # 0.1 10*3/uL (0.0-0.2); Basophils % 0.3 % (0.0-0.8); Hematocrit 36.7 VOL% (35.7-47.0); Hemoglobin 11.4 GM/DL (12.0-16.0); Immature Granulocytes % 1.1 %; Immature Granulocytes Absolute 0.31 #; Lymphocytes # 2.3 10*3/uL (1.4-4.0); Mean Corpuscular HGB Conc 31.1 GM/DL (32-36); Mean Corpuscular Volume 92.7 FL (87-102); Mean Platelet Volume 11.1 FL (9.6-12.0); Monocytes % 8.8 % (1.7-12.7); Neutrophils % 81.8 % (38.7-73.9); Platelet Count 266 T/CUMM (130-400); Red Blood Count 3.96 MC/CUMM (3.8-5.5); Red Cell Distribution Width 14.3 % (9.3-17.3)
[2021-05-15 19:43] LABS: Alanine Aminotransferase 15 U/L (13-56); Albumin 2.8 G/DL (3.4-5.0); Alkaline Phosphatase 72 U/L (45-117); Aspartate Amino Transferase 13 U/L (0-37); Bilirubin,Total < 0.39 MG/DL (0.20-1.00); Blood Urea Nitrogen 19 MG/DL (7-18); Calcium 8.6 MG/DL (8.5-10.1); Carbon Dioxide 20 MMOL/L (21-32); Estimated Glom Filtration Rate 31 ML/MIN; Glucose 72 MG/DL (74-106); Potassium 3.7 MMOL/L (3.5-5.1); Sodium 143 MMOL/L (136-145); Total Protein 6.3 G/DL (6.4-8.2)
[2021-05-15] MEDS ORDERED: SODIUM CHLORIDE 0.9% 1,600 ML IV ONE (19:52)
[2021-05-15 19:57] LABS: Band Neutrophils 16 % (0-10); Lymphocytes 9 % (20-55); Metamyelocytes 1 %; Segmented Neutrophils 69 % (50-85); Total Cells Counted 100
[2021-05-15 19:59] LABS: Platelet Estimate Normal
[2021-05-15] MEDS ORDERED: AZTREONAM 2,000 MG in SODIUM CHLORIDE 0.9% 100 ML IV ONE (20:00)
[2021-05-15] MEDS ORDERED: LEVOFLOXACIN INJ 750 MG/150 ML PREMIX IV SCH (20:00)
[2021-05-15] MEDS ORDERED: oxyCODONE/ACETAMINOPHEN 5-325 MG TABLET PO STA (20:58)
[2021-05-15] MEDS ORDERED: SODIUM CHLORIDE 0.9% 1,000 ML IV ONE (21:00)
[2021-05-15] MEDS ORDERED: ONDANSETRON 4 MG/2 ML VIAL IV PRN (21:41)
[2021-05-15] MEDS ORDERED: DEXTROSE 50% 25 GM/50 ML SYRINGE IV PRN (21:41)
[2021-05-15] MEDS ORDERED: GLUCAGON 1 MG VIAL IM PRN (21:41)
[2021-05-15] MEDS ORDERED: VANCOMYCIN INJ 1,000 MG in SODIUM CHLORIDE 0.9% 250 ML IV ONE (22:00)
[2021-05-15] MEDS ORDERED: cefTRIAXone 1,000 MG in SODIUM CHLORIDE 0.9% 100 ML IV SCH (22:00)
[2021-05-15 22:51] LABS: Bilirubin,Urine Negative (Negative); Blood, Urine Small mg/dL (Negative); Glucose,Urine (UA) Negative (Negative); Ketones,Urine Negative (Negative); Mucus,Urine Occasional /LPF (Occasional); Nitrite,Urine Negative (Negative); Protein,Urine 30 MG/DL; RBC,Urine <1 /HPF (0-4); Squamous Epithelial Cell,Urine Occasional /HPF (0-10); Urine Appearance CLEAR (Clear); Urine Color Yellow (Yellow); Urine Specific Gravity 1.016 (1.001-1.035); Urine Urobilinogen < 2.0 EU/DL (<2.0)
[2021-05-15] MEDS ORDERED: ALBUTEROL/IPRATROPIUM 3 ML NEB RESP TX ONE (23:28)
[2021-05-16] MEDS: ALBUTEROL/IPRATROPIUM 3 ML NEB RESP TX SCH ×4 (00:10→22:04)
[2021-05-16] MEDS: SODIUM CHLORIDE 0.9% 1,000 ML IV SCH ×2 (00:14→09:15)
[2021-05-16] MEDS ORDERED: PREGABALIN 100 MG CAPSULE PO ONE (00:21)
[2021-05-16] MEDS ORDERED: PROMETHAZINE 25 MG/1 ML VIAL IM ONE (01:08)
[2021-05-16] MEDS: oxyCODONE/ACETAMINOPHEN 5-325 MG TABLET PO PRN ×4 (02:05→23:38)
[2021-05-16] MEDS ORDERED: diphenhydrAMINE CAP 25 MG CAPSULE PO ONE (05:59)
[2021-05-16 06:48] LABS: Basophils # 0.1 10*3/uL (0.0-0.2); Basophils % 0.2 % (0.0-0.8); Eosinophils # 0.5 10*3/uL (0.0-0.87); Eosinophils % 2.1 % (0.00-10.9); Hematocrit 30.4 VOL% (35.7-47.0); Immature Granulocytes Absolute 0.22 #; Lymphocytes # 3.1 10*3/uL (1.4-4.0); Lymphocytes % 13.9 % (21.3-54.2); Mean Corpuscular HGB Conc 30.9 GM/DL (32-36); Mean Corpuscular Volume 94.4 FL (87-102); Mean Platelet Volume 11.2 FL (9.6-12.0); Neutrophils % 76.8 % (38.7-73.9); Red Blood Count 3.22 MC/CUMM (3.8-5.5); Red Cell Distribution Width 14.2 % (9.3-17.3)
[2021-05-16 07:01] LABS: Calcium 7.8 MG/DL (8.5-10.1); Osmolality,Calculated 286.7 MOS/KG (273-304)
[2021-05-16 07:11] LABS: Risk Ratio 1.34; Thyroid Stimulating Hormone 1.3 uIU/ml (0.358-3.74); VLDL Cholesterol 6.6 MG/DL
[2021-05-16 07:13] LABS: Hemoglobin 9.4 GM/DL (12.0-16.0); Platelet Count 201 T/CUMM (130-400)
[2021-05-16 07:19] LABS: Hypochromia 1+; Lymphocytes 12 % (20-55); Microcytosis 1+; Platelet Estimate Adequate; Segmented Neutrophils 86 % (50-85); Total Cells Counted 100
[2021-05-16] MEDS ORDERED: AZITHROMYCIN INJ 500 MG in SODIUM CHLORIDE 0.9% 250 ML IV SCH (09:00)
[2021-05-16] MEDS: ENOXAPARIN 30 MG/0.3 ML SYRINGE SUBCUT SCH (09:11)
[2021-05-16] MEDS: PANTOPRAZOLE 40 MG TABLET PO SCH (09:11)
[2021-05-16] MEDS: PREGABALIN 100 MG CAPSULE PO SCH ×3 (09:11→23:38)
[2021-05-16] MEDS ORDERED: POTASSIUM CHLORIDE 20 MEQ TABLET PO PRN (14:09)
[2021-05-16] MEDS: SODIUM CHLOR 0.9% KCL 20 MEQ 20 MEQ/1,000 ML BAG IV SCH (19:19)
[2021-05-16] MEDS ORDERED: VANCOMYCIN INJ 750 MG in SODIUM CHLORIDE 0.9% 250 ML IV SCH (21:00)
[2021-05-17] MEDS: SODIUM CHLORIDE 0.9% 1,000 ML IV SCH (01:41)
[2021-05-17] MEDS: ALBUTEROL/IPRATROPIUM 3 ML NEB RESP TX SCH ×2 (01:51→07:34)
[2021-05-17] MEDS: SODIUM CHLOR 0.9% KCL 20 MEQ 20 MEQ/1,000 ML BAG IV SCH (04:40)
[2021-05-17 05:53] LABS: Osmolality,Calculated 288.4 MOS/KG (273-304); Potassium 3.8 MMOL/L (3.5-5.1)
[2021-05-17] MEDS ORDERED: MAGNESIUM SULF RIDER 2 GM/50 ML PREMIX IV PRN (07:51)
[2021-05-17] MEDS ORDERED: MAGNESIUM SULF RIDER 4 GM/100 ML PREMIX IV PRN (07:51)
[2021-05-17 08:10] LABS: Basophils # 0.1 10*3/uL (0.0-0.2); Basophils % 0.3 % (0.0-0.8); Eosinophils # 0.5 10*3/uL (0.0-0.87); Eosinophils % 3.2 % (0.00-10.9); Hematocrit 28.8 VOL% (35.7-47.0); Hemoglobin 8.9 GM/DL (12.0-16.0); Immature Granulocytes % 0.4 %; Immature Granulocytes Absolute 0.07 #; Lymphocytes % 18.7 % (21.3-54.2); Mean Corpuscular HGB Conc 30.9 GM/DL (32-36); Mean Corpuscular Volume 94.1 FL (87-102); Mean Platelet Volume 11.1 FL (9.6-12.0); Monocytes % 6.6 % (1.7-12.7); Neutrophils % 70.8 % (38.7-73.9); Platelet Count 189 T/CUMM (130-400); Red Blood Count 3.06 MC/CUMM (3.8-5.5); Red Cell Distribution Width 14.5 % (9.3-17.3)
[2021-05-17] MEDS: oxyCODONE/ACETAMINOPHEN 5-325 MG TABLET PO PRN (08:38)
[2021-05-17] MEDS: PREGABALIN 100 MG CAPSULE PO SCH (08:38)
[2021-05-17] MEDS: PANTOPRAZOLE 40 MG TABLET PO SCH (08:38)
[2021-05-17] MEDS: ENOXAPARIN 30 MG/0.3 ML SYRINGE SUBCUT SCH (08:38)
[2021-05-17] MEDS ORDERED: LEVOFLOXACIN INJ 750 MG/150 ML PREMIX IV SCH (11:00)
[2021-05-17 11:31] VITALS: BP 123/77
[2021-05-18] MEDS ORDERED: ENOXAPARIN 40 MG/0.4 ML SYRINGE SUBCUT SCH (09:00)
== END 2021-05-17 13:04 | disposition home or self-care (01) | DRG 871 ==
LOC: EDUNIT# → EDBD → N.ED 15:44 → N.EDINP 21:42 → SUATTDRO 21:42 → N.5E 22:54
PROVIDERS: ADMIT Internal Medicine; ATTEND Internal Medicine

== ENCOUNTER 2021-05-28 11:01 | Inpatient (IN) ==
[2021-05-28] MEDS ORDERED: ONDANSETRON 4 MG/2 ML VIAL IV STA (11:25)
[2021-05-28] MEDS ORDERED: SODIUM CHLORIDE 0.9% 1,000 ML IV STA (11:25)
[2021-05-28 12:00] LABS: Basophils % 0.2 % (0.0-0.8); Eosinophils # 0.1 10*3/uL (0.0-0.87); Eosinophils % 0.4 % (0.00-10.9); Hematocrit 28.5 VOL% (35.7-47.0); Hemoglobin 9.1 GM/DL (12.0-16.0); Immature Granulocytes % 0.9 %; Immature Granulocytes Absolute 0.16 #; Lymphocytes # 1.2 10*3/uL (1.4-4.0); Lymphocytes % 6.4 % (21.3-54.2); Mean Corpuscular HGB Conc 31.9 GM/DL (32-36); Mean Corpuscular Volume 91.9 FL (87-102); Mean Platelet Volume 10.4 FL (9.6-12.0); Monocytes % 9.2 % (1.7-12.7); Neutrophils % 82.9 % (38.7-73.9); Platelet Count 278 T/CUMM (130-400); Red Cell Distribution Width 13.6 % (9.3-17.3); White Blood Count 18.4 T/CUMM (4-12)
[2021-05-28 12:28] LABS: Band Neutrophils 5 % (0-10); Lymphocytes 7 % (20-55); Segmented Neutrophils 81 % (50-85); Total Cells Counted 100
[2021-05-28 12:33] LABS: Alanine Aminotransferase 15 U/L (13-56); Albumin 1.8 G/DL (3.4-5.0); Alkaline Phosphatase 85 U/L (45-117); Aspartate Amino Transferase 29 U/L (0-37); Bilirubin,Total < 0.39 MG/DL (0.20-1.00); Blood Urea Nitrogen 14 MG/DL (7-18); Carbon Dioxide 24 MMOL/L (21-32); Estimated Glom Filtration Rate 60 ML/MIN; Glucose 90 MG/DL (74-106); Osmolality,Calculated 279.4 MOS/KG (273-304); Potassium 3.8 MMOL/L (3.5-5.1); Sodium 140 MMOL/L (136-145); Total Protein 5.1 G/DL (6.4-8.2)
[2021-05-28 12:43] LABS: Hypochromia Slight
[2021-05-28 12:44] LABS: Anisocytosis 1+; Platelet Estimate Adequate; Reactive Lymphocytes Few; Stomatocytes Slight
[2021-05-28 13:50] LABS: Bacteria,Urine Occasional /HPF (Few); Bilirubin,Urine Negative (Negative); Blood, Urine Negative (Negative); Glucose,Urine (UA) Negative (Negative); Ketones,Urine Negative (Negative); Nitrite,Urine Negative (Negative); Protein,Urine Negative; RBC,Urine 2 /HPF (0-4); Squamous Epithelial Cell,Urine Occasional /HPF (0-10); Transitional Epi Cells,Urine Occasional /HPF (<1); Urine Appearance CLEAR (Clear); Urine Color Yellow (Yellow); Urine Specific Gravity 1.005 (1.001-1.035); Urine Urobilinogen < 2.0 EU/DL (<2.0)
[2021-05-28] MEDS ORDERED: MEROPENEM 500 MG in SODIUM CHLORIDE 0.9% 100 ML IV ONE (15:21)
[2021-05-28] MEDS ORDERED: VANCOMYCIN INJ 750 MG in SODIUM CHLORIDE 0.9% 250 ML IV STA (15:28)
[2021-05-28] MEDS ORDERED: ONDANSETRON 4 MG/2 ML VIAL IV PRN (16:28)
[2021-05-28] MEDS ORDERED: ACETAMINOPHEN 325 MG TABLET PO PRN (16:28)
[2021-05-28] MEDS ORDERED: DOCUSATE SODIUM 100 MG CAPSULE PO PRN (16:28)
[2021-05-28] MEDS ORDERED: DEXTROSE 10% 250 ML BAG IV PRN (16:28)
[2021-05-28] MEDS ORDERED: GLUCAGON 1 MG VIAL IM PRN (16:28)
[2021-05-28] MEDS: DEXTROSE 5% NACL 0.45% 1,000 ML IV SCH (17:06)
[2021-05-28] MEDS ORDERED: MAGNESIUM SULF RIDER 4 GM/100 ML PREMIX IV PRN (17:19)
[2021-05-28] MEDS: PIPERACILLIN/TAZOBACTAM 3,375 MG in SODIUM CHLORIDE 0.9% 100 ML IV SCH (17:47)
[2021-05-28] MEDS: HYDROCORTISONE 100 MG VIAL IV SCH (17:47)
[2021-05-28] MEDS: MAGNESIUM SULF RIDER 2 GM/50 ML PREMIX IV PRN (17:48)
[2021-05-28] MEDS: ALBUTEROL 2.5 MG/3 ML NEB RESP TX SCH (20:40)
[2021-05-28] MEDS: PREGABALIN 50 MG CAPSULE PO SCH (21:05)
[2021-05-28] MEDS: ENOXAPARIN 40 MG/0.4 ML SYRINGE SUBCUT SCH (21:05)
[2021-05-28] MEDS: guaiFENesin/DM ER 600-30 MG TABLET PO SCH (21:05)
[2021-05-28] MEDS: oxyCODONE/ACETAMINOPHEN 5-325 MG TABLET PO PRN (21:10)
[2021-05-29] MEDS: ALBUTEROL 2.5 MG/3 ML NEB RESP TX SCH ×4 (00:55→19:30)
[2021-05-29] MEDS: PIPERACILLIN/TAZOBACTAM 3,375 MG in SODIUM CHLORIDE 0.9% 100 ML IV SCH ×3 (01:15→18:49)
[2021-05-29] MEDS: HYDROCORTISONE 100 MG VIAL IV SCH ×3 (02:00→18:49)
[2021-05-29] MEDS: DEXTROSE 5% NACL 0.45% 1,000 ML IV SCH ×2 (02:30→19:00)
[2021-05-29 04:41] LABS: Basophils % 0.2 % (0.0-0.8); Hematocrit 29.3 VOL% (35.7-47.0); Hemoglobin 9.3 GM/DL (12.0-16.0); Immature Granulocytes % 1.6 %; Immature Granulocytes Absolute 0.28 #; Lymphocytes # 1.3 10*3/uL (1.4-4.0); Mean Corpuscular HGB Conc 31.7 GM/DL (32-36); Mean Corpuscular Volume 92.1 FL (87-102); Mean Platelet Volume 10.3 FL (9.6-12.0); Monocytes % 3.7 % (1.7-12.7); Neutrophils % 87.5 % (38.7-73.9); Platelet Count 299 T/CUMM (130-400); Red Blood Count 3.18 MC/CUMM (3.8-5.5); Red Cell Distribution Width 13.6 % (9.3-17.3); White Blood Count 18.1 T/CUMM (4-12)
[2021-05-29 04:45] LABS: Albumin 1.8 G/DL (3.4-5.0); Bilirubin,Total 0.9 MG/DL (0.20-1.00); Calcium 8.1 MG/DL (8.5-10.1); Osmolality,Calculated 286.8 MOS/KG (273-304); Potassium 3.5 MMOL/L (3.5-5.1); Total Protein 5.1 G/DL (6.4-8.2)
[2021-05-29 05:18] LABS: Band Neutrophils 6 % (0-10); Hypochromia Slight; Lymphocytes 8 % (20-55); Platelet Estimate Normal; Segmented Neutrophils 84 % (50-85); Total Cells Counted 100
[2021-05-29] MEDS: PREGABALIN 50 MG CAPSULE PO SCH ×3 (09:13→20:06)
[2021-05-29] MEDS: tiZANidine 4 MG TABLET PO SCH (09:13)
[2021-05-29] MEDS: guaiFENesin/DM ER 600-30 MG TABLET PO SCH ×2 (09:13→20:05)
[2021-05-29] MEDS: PANTOPRAZOLE 40 MG TABLET PO SCH (09:13)
[2021-05-29] MEDS: oxyCODONE/ACETAMINOPHEN 5-325 MG TABLET PO PRN ×3 (09:50→23:19)
[2021-05-29] MEDS: ENOXAPARIN 40 MG/0.4 ML SYRINGE SUBCUT SCH (20:06)
[2021-05-30] MEDS: ALBUTEROL 2.5 MG/3 ML NEB RESP TX SCH ×4 (01:40→19:10)
[2021-05-30] MEDS: HYDROCORTISONE 100 MG VIAL IV SCH ×3 (02:04→18:21)
[2021-05-30] MEDS: PIPERACILLIN/TAZOBACTAM 3,375 MG in SODIUM CHLORIDE 0.9% 100 ML IV SCH ×3 (02:04→18:21)
[2021-05-30 05:02] LABS: Basophils % 0.1 % (0.0-0.8); Hematocrit 31.3 VOL% (35.7-47.0); Hemoglobin 9.7 GM/DL (12.0-16.0); Immature Granulocytes Absolute 0.16 #; Lymphocytes # 1.1 10*3/uL (1.4-4.0); Lymphocytes % 7.2 % (21.3-54.2); Mean Corpuscular Volume 92.1 FL (87-102); Mean Platelet Volume 10.4 FL (9.6-12.0); Monocytes % 3.4 % (1.7-12.7); Neutrophils % 88.3 % (38.7-73.9); Platelet Count 358 T/CUMM (130-400); Red Cell Distribution Width 13.8 % (9.3-17.3); White Blood Count 15.4 T/CUMM (4-12)
[2021-05-30 05:41] LABS: Alanine Aminotransferase 16 U/L (13-56); Albumin 2.1 G/DL (3.4-5.0); Alkaline Phosphatase 93 U/L (45-117); Aspartate Amino Transferase 15 U/L (0-37); Bilirubin,Total < 0.39 MG/DL (0.20-1.00); Blood Urea Nitrogen 8 MG/DL (7-18); Calcium 8.6 MG/DL (8.5-10.1); Carbon Dioxide 22 MMOL/L (21-32); Estimated Glom Filtration Rate 92 ML/MIN; Glucose 124 MG/DL (74-106); Osmolality,Calculated 288.6 MOS/KG (273-304); Potassium 3.3 MMOL/L (3.5-5.1); Sodium 146 MMOL/L (136-145); Total Protein 5.9 G/DL (6.4-8.2)
[2021-05-30] MEDS: oxyCODONE/ACETAMINOPHEN 5-325 MG TABLET PO PRN ×3 (10:05→21:48)
[2021-05-30] MEDS: PREGABALIN 50 MG CAPSULE PO SCH ×3 (10:05→20:57)
[2021-05-30] MEDS: PANTOPRAZOLE 40 MG TABLET PO SCH (10:06)
[2021-05-30] MEDS: tiZANidine 4 MG TABLET PO SCH (10:06)
[2021-05-30] MEDS: guaiFENesin/DM ER 600-30 MG TABLET PO SCH ×2 (10:06→20:57)
[2021-05-30] MEDS ORDERED: FUROSEMIDE 40 MG/4 ML VIAL IV ONE (12:23)
[2021-05-30] MEDS: DEXTROSE 5% NACL 0.45% 1,000 ML IV SCH (18:45)
[2021-05-30] MEDS: ENOXAPARIN 40 MG/0.4 ML SYRINGE SUBCUT SCH (20:56)
[2021-05-31] MEDS: ALBUTEROL 2.5 MG/3 ML NEB RESP TX SCH ×4 (01:08→19:14)
[2021-05-31] MEDS: HYDROCORTISONE 100 MG VIAL IV SCH ×3 (02:15→20:23)
[2021-05-31] MEDS: PIPERACILLIN/TAZOBACTAM 3,375 MG in SODIUM CHLORIDE 0.9% 100 ML IV SCH ×3 (02:15→17:36)
[2021-05-31 03:09] LABS: Hematocrit 28.6 VOL% (35.7-47.0); Immature Granulocytes % 1.3 %; Immature Granulocytes Absolute 0.06 #; Lymphocytes # 0.7 10*3/uL (1.4-4.0); Lymphocytes % 14.2 % (21.3-54.2); Mean Corpuscular HGB Conc 31.5 GM/DL (32-36); Mean Corpuscular Volume 90.5 FL (87-102); Mean Platelet Volume 10.6 FL (9.6-12.0); Monocytes % 5.4 % (1.7-12.7); Neutrophils % 79.1 % (38.7-73.9); Platelet Count 351 T/CUMM (130-400); Red Blood Count 3.16 MC/CUMM (3.8-5.5); Red Cell Distribution Width 13.7 % (9.3-17.3)
[2021-05-31 03:24] LABS: White Blood Count 4.8 T/CUMM (4-12)
[2021-05-31 03:42] LABS: Alanine Aminotransferase 14 U/L (13-56); Alkaline Phosphatase 84 U/L (45-117); Aspartate Amino Transferase 10 U/L (0-37); Bilirubin,Total < 0.39 MG/DL (0.20-1.00); Blood Urea Nitrogen 10 MG/DL (7-18); Calcium 8.8 MG/DL (8.5-10.1); Carbon Dioxide 27 MMOL/L (21-32); Estimated Glom Filtration Rate 96 ML/MIN; Glucose 104 MG/DL (74-106); Osmolality,Calculated 284.8 MOS/KG (273-304); Potassium 2.8 MMOL/L (3.5-5.1); Sodium 144 MMOL/L (136-145); Total Protein 5.6 G/DL (6.4-8.2)
[2021-05-31] MEDS: MAGNESIUM SULF RIDER 2 GM/50 ML PREMIX IV PRN (06:15)
[2021-05-31] MEDS: POTASSIUM CHLORIDE 20 MEQ TABLET PO PRN (06:16)
[2021-05-31] MEDS ORDERED: POTASSIUM CHLORIDE 20 MEQ TABLET PO ONE (07:34)
[2021-05-31] MEDS: oxyCODONE/ACETAMINOPHEN 5-325 MG TABLET PO PRN ×3 (07:35→20:24)
[2021-05-31] MEDS: PANTOPRAZOLE 40 MG TABLET PO SCH (09:00)
[2021-05-31] MEDS: tiZANidine 4 MG TABLET PO SCH (09:01)
[2021-05-31] MEDS: PREGABALIN 50 MG CAPSULE PO SCH ×3 (09:01→20:23)
[2021-05-31] MEDS: guaiFENesin/DM ER 600-30 MG TABLET PO SCH ×2 (10:25→20:24)
[2021-05-31] MEDS: PROMETHAZINE 25 MG TABLET PO PRN ×2 (12:31→20:23)
[2021-05-31] MEDS ORDERED: MAGNESIUM SULF RIDER 1 GM/100 ML PREMIX IV ONE (13:00)
[2021-05-31] MEDS: ENOXAPARIN 40 MG/0.4 ML SYRINGE SUBCUT SCH (20:23)
[2021-05-31] MEDS: traZODone 50 MG TABLET PO SCH (21:15)
[2021-06-01] MEDS: ALBUTEROL 2.5 MG/3 ML NEB RESP TX SCH ×4 (00:39→19:40)
[2021-06-01] MEDS: PIPERACILLIN/TAZOBACTAM 3,375 MG in SODIUM CHLORIDE 0.9% 100 ML IV SCH ×3 (00:48→17:17)
[2021-06-01] MEDS: oxyCODONE/ACETAMINOPHEN 5-325 MG TABLET PO PRN ×3 (05:42→21:57)
[2021-06-01 08:03] LABS: Basophils % 0.1 % (0.0-0.8); Hematocrit 30.5 VOL% (35.7-47.0); Hemoglobin 9.7 GM/DL (12.0-16.0); Immature Granulocytes % 3.6 %; Immature Granulocytes Absolute 0.29 #; Lymphocytes # 2.8 10*3/uL (1.4-4.0); Lymphocytes % 33.9 % (21.3-54.2); Mean Corpuscular HGB Conc 31.8 GM/DL (32-36); Mean Corpuscular Volume 91.3 FL (87-102); Mean Platelet Volume 10.4 FL (9.6-12.0); Monocytes % 10.3 % (1.7-12.7); Neutrophils % 52.1 % (38.7-73.9); Platelet Count 394 T/CUMM (130-400); Red Blood Count 3.34 MC/CUMM (3.8-5.5); Red Cell Distribution Width 13.7 % (9.3-17.3); White Blood Count 8.1 T/CUMM (4-12)
[2021-06-01 08:16] LABS: Calcium 8.3 MG/DL (8.5-10.1); Osmolality,Calculated 282.1 MOS/KG (273-304); Potassium 3.3 MMOL/L (3.5-5.1)
[2021-06-01] MEDS: HYDROCORTISONE 100 MG VIAL IV SCH (08:51)
[2021-06-01] MEDS: POTASSIUM CHLORIDE 20 MEQ TABLET PO PRN ×3 (08:52→14:59)
[2021-06-01] MEDS: guaiFENesin/DM ER 600-30 MG TABLET PO SCH ×2 (08:52→21:47)
[2021-06-01] MEDS: PREGABALIN 50 MG CAPSULE PO SCH ×3 (08:52→21:57)
[2021-06-01] MEDS: tiZANidine 4 MG TABLET PO SCH (08:52)
[2021-06-01] MEDS: PANTOPRAZOLE 40 MG TABLET PO SCH (08:52)
[2021-06-01] MEDS: METOCLOPRAMIDE 10 MG TABLET PO SCH ×2 (17:17→21:57)
[2021-06-01] MEDS: ENOXAPARIN 40 MG/0.4 ML SYRINGE SUBCUT SCH (21:56)
[2021-06-01] MEDS: traZODone 50 MG TABLET PO SCH (21:57)
[2021-06-01] MEDS: HYDROCORTISONE 10 MG TABLET PO SCH (21:57)
[2021-06-02] MEDS: ALBUTEROL 2.5 MG/3 ML NEB RESP TX SCH ×3 (00:25→13:14)
[2021-06-02] MEDS: PIPERACILLIN/TAZOBACTAM 3,375 MG in SODIUM CHLORIDE 0.9% 100 ML IV SCH ×2 (01:42→09:15)
[2021-06-02 04:23] LABS: Basophils % 0.3 % (0.0-0.8); Hematocrit 31.7 VOL% (35.7-47.0); Immature Granulocytes % 8.1 %; Immature Granulocytes Absolute 0.54 #; Lymphocytes % 30.7 % (21.3-54.2); Mean Corpuscular HGB Conc 31.5 GM/DL (32-36); Mean Corpuscular Volume 90.1 FL (87-102); Mean Platelet Volume 9.9 FL (9.6-12.0); Monocytes % 8.3 % (1.7-12.7); Neutrophils % 52.6 % (38.7-73.9); Platelet Count 370 T/CUMM (130-400); Red Blood Count 3.52 MC/CUMM (3.8-5.5); Red Cell Distribution Width 13.5 % (9.3-17.3); White Blood Count 6.6 T/CUMM (4-12)
[2021-06-02 04:40] LABS: Calcium 8.2 MG/DL (8.5-10.1); Potassium 3.7 MMOL/L (3.5-5.1)
[2021-06-02] MEDS: oxyCODONE/ACETAMINOPHEN 5-325 MG TABLET PO PRN (04:57)
[2021-06-02 04:58] LABS: Band Neutrophils 1 % (0-10); Hypochromia Slight; Lymphocytes 27 % (20-55); Microcytosis Slight; Platelet Estimate Adequate; Segmented Neutrophils 67 % (50-85); Total Cells Counted 100
[2021-06-02] MEDS: METOCLOPRAMIDE 10 MG TABLET PO SCH (09:16)
[2021-06-02] MEDS: HYDROCORTISONE 10 MG TABLET PO SCH (09:16)
[2021-06-02] MEDS: tiZANidine 4 MG TABLET PO SCH (09:16)
[2021-06-02] MEDS: PREGABALIN 50 MG CAPSULE PO SCH (09:16)
[2021-06-02] MEDS: PANTOPRAZOLE 40 MG TABLET PO SCH (09:16)
[2021-06-02] MEDS: guaiFENesin/DM ER 600-30 MG TABLET PO SCH (09:16)
[2021-06-02 12:05] VITALS: BP 120/73
== END 2021-06-02 13:00 | disposition home health service (06) | DRG 194 ==
LOC: N.ED 11:01 → N.EDINP 16:28 → SUATTDRO 16:28 → N.EDINP 05-29 13:28 → N.5E 05-29 13:53
PROVIDERS: ADMIT Internal Medicine; ATTEND Internal Medicine